=== PATIENT | female | born 1960 | race Caucasian/White ===

== ENCOUNTER 2017-05-16 17:25 | Emergency (ER) | payer MEDICARE, OTHER ==
[~2017-05-16] VITALS: Ht 154.9 cm; Wt 120.2 kg
[~2017-05-16 17:25] MED LIST: ALBU90OI INH; ALLEGRA ALLERG180 M1 PO; ALPR1 PO; ALUM320SU PO; ASPI325EC PO; ATEN25 PO; Advil200 M1 PO; BUDE6HFA INH; BUTALB-ACETAMI1 EACH PO; CEPH500 PO; Cipro500 MG PO; ESCI20 PO; FLUSAL2505 INH; FURO40 PO; GABA400 PO; Glucophage1000 MG PO; Imitrex100 MG PO; LISI5 PO; METF500 PO; Mobic15 MG PO; Multiple Vitam1 EAC1 PO; NAPR500 PO; NITR.4SL SL; OMEPRAZOLE MAGN20 MG PO; OXYACE5T PO; OXYACE7.5T PO; OXYC10TA19 PO; OXYC5 PO; PARO20 PO; PAXIL40 MG PO; POTCHL10ER PO; PREG100 PO; Pyridium200 MG PO; SULTRIDS PO; Sudogest30 MG PO; TIOT18 INH; TOPI50 PO; TRAZ50 PO; TRIHYD253B PO; Ultram50 MG PO; Valium5 MG PO; Ventolin Soln3 ML INH; Zofran Odt4 MG SL
[2017-05-16 18:43] LABS: BASOPHILS ABSOLUTE AUTO 0.09 K/mm3 (0.00-0.23); BASOPHILS PERCENT AUTO 1 % (0-2); EOSINOPHILS ABSOLUTE AUTO 0.17 K/mm3 (0.00-0.68); EOSINOPHILS PERCENT AUTO 2 % (0-6); Hematocrit 41.9 % (33.0-51.0); Hemoglobin 14.1 g/dL (11.5-16.0); IMMATURE GRAN ABSOLUTE AUTO 0.05 K/mm3 (0.00-0.10); IMMATURE GRAN PERCENT AUTO 1 % (0-1); LYMPHOCYTES ABSOLUTE AUTO 2.42 K/mm3 (0.84-5.20); LYMPHOCYTES PERCENT AUTO 29 % (21-46); MONOCYTES ABSOLUTE AUTO 0.62 K/mm3 (0.16-1.47); MONOCYTES PERCENT AUTO 7 % (4-13); Mean Corpuscular HGB 30.1 pg (26.0-34.0); Mean Corpuscular HGB Conc 33.7 g/dL (31.5-36.5); Mean Corpuscular Volume 90 fL (80-100); Mean Platelet Volume 9.2 fL (9.1-12.4); NEUTROPHILS ABSOLUTE AUTO 5.09 K/mm3 (1.96-9.15); NEUTROPHILS PERCENT AUTO 60 % (41-73); Platelet Count 316 K/mm3 (150-400); RDW Coefficient Variation 13.2 % (11.7-14.2); RDW Standard Deviation 43.5 fL (35.1-46.3); Red Blood Cell Count 4.68 M/mm3 (3.80-5.20); White Blood Cell Count 8.44 K/mm3 (4.00-11.30)
[2017-05-16 18:52] LABS: International Normalized Ratio 0.97; Prothrombin Time Results 10.1 Sec (9.7-11.5)
[2017-05-16 19:01] LABS: Alanine Aminotransfer (ALT/SGP 66 U/L (12-78); Albumin, Blood 3.9 g/dL (3.4-5.0); Alk Phos 78 U/L (50-136); Anion Gap 9 mmol/L (6-16); Aspartate Aminotrans (AST/SGOT 39 U/L (12-37); Bilirubin, Total 0.5 mg/dL (0.1-1.0); Blood Urea Nitrogen 20 mg/dL (8-24); Bun/Creatinine Ratio 22.7 (12.0-20.0); CO2, Blood 25 mmol/L (21-32); Calcium, Blood 9.5 mg/dL (8.5-10.1); Chloride, Blood 103 mmol/L (98-108); Creatinine, Blood 0.88 mg/dL (0.40-1.00); Ethanol (Alcohol), Blood, Med <3 mg/dL; Globulin, Blood 3.8 g/dL (2.2-4.0); Glomerular Filtration Rate >60 (60-); Glucose, Blood 197 mg/dL (70-99); Potassium, Blood 4.6 mmol/L (3.5-5.5); Sodium, Blood 137 mmol/L (136-145); Total Protein, Blood 7.7 g/dL (6.4-8.2)
[2017-05-16 19:46] LABS: Source, Urine Clean Catch
[2017-05-16 19:48] LABS: Bilirubin, Urine Neg (Neg); Blood, Urine Neg (Neg); Glucose Qualitative, Urine 2+ (Neg); Ketones, Urine 1+ (Neg); Leukocyte Esterase, Urine Neg (Neg); Nitrite, Urine Neg (Neg); Protein, Urine Neg (Neg); Specific Gravity, Urine 1.025 (1.003-1.022); Urobilinogen, Urine NORM (Normal)
[2017-05-16 19:54] LABS: Appearance, Urine Clear (Clear); Color, Urine Yellow (P-Yellow)
== END 2017-05-16 19:43 | disposition home or self-care (01) ==
LOC: ER 17:25
PROVIDERS: Emergency Medicine
DX: F41.0 Panic disorder [episodic paroxysmal anxiety] (principal); F32.9 Major depressive disorder, single episode, unspecified; G43.909 Migraine, unspecified, not intractable, without status migrainosus; E11.9 Type 2 diabetes mellitus without complications; J44.9 Chronic obstructive pulmonary disease, unspecified; I10 Essential (primary) hypertension; E66.9 Obesity, unspecified; F17.200 Nicotine dependence, unspecified, uncomplicated
CPT/HCPCS: 36415; 70450; 71046; 80053; 81003; 82947; 85025; 85610; 93005; 93010; 99284; G0480

== ENCOUNTER 2017-09-08 08:26 | Inpatient (IN) | payer MEDICARE, OTHER ==
[~2017-09-08] VITALS: Ht 152.4 cm; Wt 125.4 kg
[2017-09-08 09:20] LABS: PCO2 Arterial 40.8 mmHg (35-45); PO2 Arterial 76.6 mmHg (80-100); pH Blood Arterial 7.38 (7.35-7.45)
[2017-09-08 09:26] LABS: BASOPHILS ABSOLUTE AUTO 0.06 K/mm3 (0.00-0.23); BASOPHILS PERCENT AUTO 1 % (0-2); EOSINOPHILS ABSOLUTE AUTO 0.04 K/mm3 (0.00-0.68); EOSINOPHILS PERCENT AUTO 0 % (0-6); Hematocrit 41.4 % (33.0-51.0); Hemoglobin 13.8 g/dL (11.5-16.0); IMMATURE GRAN ABSOLUTE AUTO 0.06 K/mm3 (0.00-0.10); IMMATURE GRAN PERCENT AUTO 1 % (0-1); LYMPHOCYTES ABSOLUTE AUTO 1.51 K/mm3 (0.84-5.20); LYMPHOCYTES PERCENT AUTO 15 % (21-46); MONOCYTES ABSOLUTE AUTO 0.77 K/mm3 (0.16-1.47); MONOCYTES PERCENT AUTO 8 % (4-13); Mean Corpuscular HGB 30.3 pg (26.0-34.0); Mean Corpuscular HGB Conc 33.3 g/dL (31.5-36.5); Mean Corpuscular Volume 91 fL (80-100); Mean Platelet Volume 9.5 fL (9.1-12.4); NEUTROPHILS ABSOLUTE AUTO 7.88 K/mm3 (1.96-9.15); NEUTROPHILS PERCENT AUTO 76 % (41-73); Platelet Count 254 K/mm3 (150-400); RDW Coefficient Variation 13.1 % (11.7-14.2); RDW Standard Deviation 42.8 fL (35.1-46.3); Red Blood Cell Count 4.56 M/mm3 (3.80-5.20); White Blood Cell Count 10.32 K/mm3 (4.00-11.30)
[2017-09-08 09:44] LABS: Alanine Aminotransfer (ALT/SGP 51 U/L (12-78); Albumin, Blood 3.7 g/dL (3.4-5.0); Albumin/Globulin Ratio 0.9 (0.8-1.8); Alk Phos 81 U/L (50-136); Anion Gap 8 mmol/L (6-16); Aspartate Aminotrans (AST/SGOT 26 U/L (12-37); Bilirubin, Total 0.7 mg/dL (0.1-1.0); Blood Urea Nitrogen 14 mg/dL (8-24); Bun/Creatinine Ratio 15.5 (12.0-20.0); CO2, Blood 26 mmol/L (21-32); Calcium, Blood 9.1 mg/dL (8.5-10.1); Chloride, Blood 101 mmol/L (98-108); Creatinine, Blood 0.91 mg/dL (0.40-1.00); Globulin, Blood 3.9 g/dL (2.2-4.0); Glomerular Filtration Rate >60 (60-); Glucose, Blood 316 mg/dL (70-99); Potassium, Blood 4.4 mmol/L (3.5-5.5); Sodium, Blood 135 mmol/L (136-145); Total Protein, Blood 7.6 g/dL (6.4-8.2); Troponin I <0.015 ng/mL (0.000-0.040)
[2017-09-08] MEDS ORDERED: FAMO20 PO (14:50)
[2017-09-08] MEDS ORDERED: PARO20 PO (15:19)
[2017-09-09 08:02] LABS: Glucose, Blood 552 mg/dL (70-99)
[2017-09-09 10:41] LABS: Glucose, Blood 648 mg/dL (70-99)
[2017-09-11 04:20] LABS: Hematocrit 40.1 % (33.0-51.0); Hemoglobin 13.2 g/dL (11.5-16.0); Mean Corpuscular HGB 30.3 pg (26.0-34.0); Mean Corpuscular HGB Conc 32.9 g/dL (31.5-36.5); Mean Corpuscular Volume 92 fL (80-100); Mean Platelet Volume 9.7 fL (9.1-12.4); Platelet Count 270 K/mm3 (150-400); RDW Coefficient Variation 13.2 % (11.7-14.2); RDW Standard Deviation 45.2 fL (35.1-46.3); Red Blood Cell Count 4.36 M/mm3 (3.80-5.20); White Blood Cell Count 10.04 K/mm3 (4.00-11.30)
[2017-09-11 04:37] LABS: Albumin, Blood 3.5 g/dL (3.4-5.0); Anion Gap 8 mmol/L (6-16); Blood Urea Nitrogen 40 mg/dL (8-24); Bun/Creatinine Ratio 41.1 (12.0-20.0); CO2, Blood 26 mmol/L (21-32); Calcium, Blood 9.7 mg/dL (8.5-10.1); Chloride, Blood 103 mmol/L (98-108); Creatinine, Blood 0.97 mg/dL (0.40-1.00); Glomerular Filtration Rate >60 (60-); Glucose, Blood 219 mg/dL (70-99); Phosphorus, Blood 4.3 mg/dL (2.5-4.9); Potassium, Blood 4.8 mmol/L (3.5-5.5); Sodium, Blood 137 mmol/L (136-145)
[2017-09-13] MEDS ORDERED: CEPACOL SORE T1 EACH MM (09:43)
[2017-09-13] MEDS ORDERED: GUAI600T33 PO (09:44)
[2017-09-13] MEDS ORDERED: Novolog Fl100 UNIT/1 SC ×2 (09:44→09:45)
[2017-09-13] MEDS ORDERED: LEVEMIR FL100 UNIT/1 SC ×2 (09:45)
[2017-09-13] MEDS ORDERED: ALBU3IS INH (09:47)
[2017-09-13] MEDS ORDERED: PROBIOTIC1 EAC1 PO (09:47)
[2017-09-13] MEDS ORDERED: GAVILAX17 GM PO (09:48)
[2017-09-13] MEDS ORDERED: PRED20 PO (09:49)
== END 2017-09-13 12:31 | disposition home or self-care (01) | DRG 189 ==
LOC: ER 08:26 → PCU 12:08 → MEDS 14:29 → PCU 09-09 16:28 → MEDS 09-09 18:46
PROVIDERS: Internal Medicine; Physician Assistant
PROC: 5A09357 Assistance with Respiratory Ventilation, Less than 24 Consecutive Hours, Continuous Positive Airway Pressure (ICD-10-PCS; principal; 2017-09-08)
DX: J96.01 Acute respiratory failure with hypoxia (principal); J44.1 Chronic obstructive pulmonary disease with (acute) exacerbation; F11.20 Opioid dependence, uncomplicated; Z68.43 Body mass index [BMI] 50.0-59.9, adult; I10 Essential (primary) hypertension; G89.29 Other chronic pain; M79.7 Fibromyalgia; F32.9 Major depressive disorder, single episode, unspecified; E11.40 Type 2 diabetes mellitus with diabetic neuropathy, unspecified; E11.65 Type 2 diabetes mellitus with hyperglycemia; E66.9 Obesity, unspecified
CPT/HCPCS: 36415; 36600; 71046; 80053; 80069; 82803; 82947; 83036; 83880; 84484; 85025; 85027; 93005; 93010; 94640; 94660; 94667; 94668; 94761; 94762; 96365; 96375; 99285; J0456; J1650; J1815; J2920; J2930; J7050; J7120

== ENCOUNTER → 2019-01-01 | Outpatient (CLI) | payer MEDICARE ==
[~2019-01-01] MED LIST changes: +ALBU3IS INH; +CEPACOL SORE T1 EACH MM; +FAMO20 PO; +GAVILAX17 GM PO; +GUAI600T33 PO; +LEVEMIR FL100 UNIT/1 SC; +Novolog Fl100 UNIT/1 SC; +PRED20 PO; +PROBIOTIC1 EAC1 PO
== END | disposition home or self-care (01) ==
LOC: LAB 15:22 → LAB SHORT 15:22
DX: E11.9 Type 2 diabetes mellitus without complications (principal)
CPT/HCPCS: 82043

== ENCOUNTER → 2019-09-20 | Outpatient (CLI) | payer MEDICARE | LOC: LAB EV 12:35 → LAB SHORT 12:35 | DX: R05 Cough (principal); Z20.828 Contact with and (suspected) exposure to other viral communicable diseases | CPT/HCPCS: U0003 ==

== ENCOUNTER 2020-05-25 19:37 | Emergency (ER) | payer OTHER ==
[~2020-05-25] VITALS: Ht 152.4 cm; Wt 108.9 kg
[2020-05-25] MEDS ORDERED: Prozac40 MG PO (20:01)
[2020-05-25 20:48] LABS: BASOPHILS ABSOLUTE AUTO 0.06 K/mm3 (0.00-0.23); BASOPHILS PERCENT AUTO 1 % (0-2); EOSINOPHILS ABSOLUTE AUTO 0.42 K/mm3 (0.00-0.68); EOSINOPHILS PERCENT AUTO 5 % (0-6); Hematocrit 33.1 % (33.0-51.0); Hemoglobin 10.6 g/dL (11.5-16.0); IMMATURE GRAN ABSOLUTE AUTO 0.04 K/mm3 (0.00-0.10); IMMATURE GRAN PERCENT AUTO 1 % (0-1); LYMPHOCYTES ABSOLUTE AUTO 2.26 K/mm3 (0.84-5.20); LYMPHOCYTES PERCENT AUTO 26 % (21-46); MONOCYTES ABSOLUTE AUTO 0.69 K/mm3 (0.16-1.47); MONOCYTES PERCENT AUTO 8 % (4-13); Mean Corpuscular HGB 29.8 pg (26.0-34.0); Mean Corpuscular Volume 93 fL (80-100); Mean Platelet Volume 9.5 fL (9.1-12.4); NEUTROPHILS ABSOLUTE AUTO 5.22 K/mm3 (1.96-9.15); NEUTROPHILS PERCENT AUTO 60 % (41-73); Platelet Count 278 K/mm3 (150-400); RDW Coefficient Variation 14.8 % (11.7-14.2); RDW Standard Deviation 51.2 fL (35.1-46.3); Red Blood Cell Count 3.56 M/mm3 (3.80-5.20); White Blood Cell Count 8.69 K/mm3 (4.00-11.30)
[2020-05-25 20:55] LABS: Alanine Aminotransfer (ALT/SGP 26 U/L (12-78); Albumin, Blood 3.7 g/dL (3.4-5.0); Albumin/Globulin Ratio 1.1 (0.8-1.8); Alk Phos 70 U/L (50-136); Anion Gap 5 mmol/L (6-16); Aspartate Aminotrans (AST/SGOT 10 U/L (12-37); Bilirubin, Total 0.6 mg/dL (0.1-1.0); Blood Urea Nitrogen 29 mg/dL (8-24); Bun/Creatinine Ratio 28.7 (12.0-20.0); CO2, Blood 28 mmol/L (21-32); Chloride, Blood 110 mmol/L (98-108); Creatinine, Blood 1.01 mg/dL (0.40-1.00); Globulin, Blood 3.3 g/dL (2.2-4.0); Glomerular Filtration Rate 59 (60-); Glucose, Blood 92 mg/dL (70-99); Potassium, Blood 4.3 mmol/L (3.5-5.5); Sodium, Blood 143 mmol/L (136-145)
[2020-05-25 22:28] LABS: Troponin I <0.015 ng/mL (0.000-0.040)
== END 2020-05-25 22:54 | disposition home or self-care (01) ==
LOC: ER 19:37
PROVIDERS: Emergency Medicine
DX: R07.9 Chest pain, unspecified (principal); J44.9 Chronic obstructive pulmonary disease, unspecified; Z79.4 Long term (current) use of insulin; Z79.899 Other long term (current) drug therapy; Z79.52 Long term (current) use of systemic steroids; Z79.51 Long term (current) use of inhaled steroids; Z88.5 Allergy status to narcotic agent; Z88.2 Allergy status to sulfonamides; Z88.1 Allergy status to other antibiotic agents; Z88.6 Allergy status to analgesic agent; Z88.8 Allergy status to other drugs, medicaments and biological substances; Z87.891 Personal history of nicotine dependence
CPT/HCPCS: 71045; 80053; 84484; 85025; 93005; 93010; 99285-25

== ENCOUNTER 2022-02-22 14:48 | Inpatient (IN) | payer OTHER ==
[~2022-02-22] VITALS: Ht 172.7 cm; Wt 119.5 kg
[~2022-02-22 14:48] MED LIST changes: +ACET325 PO; +ATORVASTATIN CA80 M1 PO; +HYDHCL25 PO; +PROBIOTIC1 EA13 PO; -PROBIOTIC1 EAC1 PO; +Prozac40 MG PO
[2022-02-22 15:18] LABS: PCO2 Arterial 48.3 mmHg (35-45); PO2 Arterial 72.3 mmHg (80-100); pH Blood Arterial 7.35 (7.35-7.45)
[2022-02-22 15:24] LABS: BASOPHILS ABSOLUTE AUTO 0.06 K/mm3 (0.00-0.23); BASOPHILS PERCENT AUTO 0 % (0-2); EOSINOPHILS ABSOLUTE AUTO 0.02 K/mm3 (0.00-0.68); EOSINOPHILS PERCENT AUTO 0 % (0-6); Hematocrit 43.1 % (33.0-51.0); IMMATURE GRAN ABSOLUTE AUTO 0.07 K/mm3 (0.00-0.10); IMMATURE GRAN PERCENT AUTO 1 % (0-1); LYMPHOCYTES ABSOLUTE AUTO 1.09 K/mm3 (0.84-5.20); LYMPHOCYTES PERCENT AUTO 8 % (21-46); MONOCYTES ABSOLUTE AUTO 0.94 K/mm3 (0.16-1.47); MONOCYTES PERCENT AUTO 7 % (4-13); Mean Corpuscular HGB 28.6 pg (26.0-34.0); Mean Corpuscular HGB Conc 32.5 g/dL (31.5-36.5); Mean Corpuscular Volume 88 fL (80-100); Mean Platelet Volume 8.9 fL (9.1-12.4); NEUTROPHILS ABSOLUTE AUTO 11.96 K/mm3 (1.96-9.15); NEUTROPHILS PERCENT AUTO 85 % (41-73); Platelet Count 307 K/mm3 (150-400); RDW Coefficient Variation 14.5 % (11.7-14.2); RDW Standard Deviation 46.8 fL (35.1-46.3); Red Blood Cell Count 4.89 M/mm3 (3.80-5.20); White Blood Cell Count 14.14 K/mm3 (4.00-11.30)
[2022-02-22 15:40] LABS: Albumin, Blood 3.8 g/dL (3.4-5.0); Albumin/Globulin Ratio 0.9 (0.8-1.8); Bilirubin, Total 0.9 mg/dL (0.1-1.0); Bun/Creatinine Ratio 14.7 (12.0-20.0); Calcium, Blood 9.1 mg/dL (8.5-10.1); Creatinine, Blood 0.95 mg/dL (0.40-1.00); Globulin, Blood 4.1 g/dL (2.2-4.0); Potassium, Blood 4.2 mmol/L (3.5-5.5); Total Protein, Blood 7.9 g/dL (6.4-8.2)
[2022-02-22 16:04] LABS: Source, Urine Foley catheter
[2022-02-22 16:06] LABS: Appearance, Urine Clear (Clear); Bilirubin, Urine Neg (Neg); Blood, Urine Neg (Neg); Color, Urine Yellow (P-Yellow); Glucose Qualitative, Urine Neg (Neg); Ketones, Urine Neg (Neg); Leukocyte Esterase, Urine Neg (Neg); Nitrite, Urine Neg (Neg); Protein, Urine 2+ (Neg); Specific Gravity, Urine 1.025 (1.003-1.022); Urobilinogen, Urine NORM (Normal)
[2022-02-22 16:29] LABS: Amorphous Light (0-Heavy); Bacteria Few /hpf; Mucus Mod (0-Heavy); Red Blood Cells, Urine 0-2 /hpf (0-2); Squamous Epithelial Cells Rare /hpf (Few); Transitional Epithelial Cells Rare /hpf (0-Rare); White Blood Cells, Urine 0-2 /hpf (0-5)
[2022-02-22 16:30] LABS: Granular Casts 0-2 /lpf (0); Hyaline Casts 0-2 /lpf (0-2); Renal Epithelial Rare /hpf (0-Rare)
[2022-02-22 16:46] LABS: Influenza A, PCR NEGATIVE (NEGATIVE); Influenza B, PCR NEGATIVE (NEGATIVE); SARS-Cov-2 (COVID-19) PCR, MMC NEGATIVE (NEGATIVE)
[2022-02-22] MEDS ORDERED: FUROSEMIDE40 MG PO (17:44)
[2022-02-22 18:37] LABS: Resp Syncytial Virus, PCR POSITIVE (NEGATIVE)
--- NOTE | 2022-02-22 21:05 | NUR ---
PT HERE VIA [facility] FROM ER. PT TRANSFERRED TO PCU BED. PT IS ALERT AND ORIENTED, AND ABLE TO COMPLETE SENTENCES. PT IS ON BIPAP SETTING 03/30/% - SATS WNL. RR 38. PT PLACED IN PCU GOWN. ORIENTED TO CALL LIGHT, SURROUNDINGS. PT IS UPSET SHE IS NPO. TOOTHETTES PROVIDED FOR COMFORT. PT REPORTS SHE WEARS 3L OXYGEN VIA NC AT BEDTIME. PT IS MORBIDLY OBESE. PT HAS A HISTORY OF PANIC/ANXIETY ATTACKS. PT CURRENTLY IS TOLERATING THE BIPAP WITHOUT COMPLICATIONS. IV SL'D TO LEFT AC - FLUSHED. LS WITH I/E WHEEZE UPPER RIGHT LOBE, OTHERWISE LS CLEAR, BUT DIM THROUGHOUT. PT IS COUGHING UP GREEN, BROWN PHLEGM. PT REPORTS RECENTLY, 2 WEEKS AGO, STARTED SMOKING AGAIN, SEE ADMIT HISTORY. JONES IN PLACE. CALL LIGHT WITHIN REACH. BED IN LOW POSITION. BED ALARM ON FOR PT SAFETY.
[2022-02-22] MEDS ORDERED: ABILIFY MYCITE2 M2 PO (21:31)
[2022-02-22] MEDS ORDERED: TOUJEO MAX300 UNIT/2 SC (21:34)
[2022-02-22] MEDS ORDERED: OZEMPIC1 MG/0.72 SC (21:36)
[2022-02-22] MEDS ORDERED: Prozac20 MG PO (21:38)
[2022-02-22] MEDS ORDERED: PRAZ2 PO (21:39)
--- NOTE | 2022-02-22 22:50 | NUR ---
PT REPORTS ANXIETY LEVEL IS INCREASING. SPOKE TO LIAM CN - RELAYED ATARAX ON HER PROFILE. LIAM RECOMMENDED POSSIBLY ATIVAN FOR ANXIETY. I CALLED DR. FRAGA, RELAYED ANXIETY LEVEL, AND CURRENT BIPAP SETTINGS, FI02 30%, RECEIVED ORDER ATIVAN 0.5MG ORDER PO X1.
--- NOTE | 2022-02-22 23:15 | NUR ---
JIM CARVALHO REPORTED TO ME, PT IS REPORTING THE BIPAP IS PUSHING TOO MUCH AIR. I CONTACTED RESPIRATORY, RODNEY Valdez, AND UPDATED HIM - HE RELAYED SHE WAS ON THE LOWEST SETTINGS, BUT WOULD BE BY SHORTLY TO SEE HER.
--- NOTE | 2022-02-22 23:27 | NUR ---
PT SITTING UP IN BED, JUST PULLED HER BIPAP MASK OFF, RELAYED SHE ISN'T TOLERATING IT. PT REFUSED TO HAVE HER BIPAP PLACED ON, SATS WERE CONTINUING TO DROP. YANCI WHEELER CAME TO ROOM, SATS HAD DROPPED TO 70%. PT SAID SHE "COULDN'T GET HER AIR." RESPIRATORY CALLED, PT'S SATS CONTINUED TO DROP. PLACED PT BACK ON BIPAP, 100% FIO2, SATS DROPPED DOWN TO 32% PER MONITOR. 2328 RODNEY, RT IN ROOM. PT PLACED BACK INTO BED WITH BIPAP IN PLACE. PT WAS BEGINNING TO LOOSE CONSCIOUSNESS, EYES ROLLING TO THE BACK OF HER HEAD, WITH A GLAZED LOOK ON HER FACE. 2330 RAPID RESPOND CALLED - [phone], REPORT FROM PULLMAN CAR CLERK IS THE RAPID HAD BEEN "CALLED 3X", HOWEVER WE DIDN'T HEAR THE RAPID OVERHEAD UNTIL 2331. AT 2332 SATS REBOUNDED TO 98%, FIO2 WAS TURNED DOWN TO 40%. SEE VS. [address] FRAGA, SHE DIDN'T RESPOND TO THE RAPID. AT 2339 DR. FRAGA HERE, SHE RELAYED SHE DIDN'T HEAR THE RAPID CALLED. RELAYED INFORMATION ABOVE TO DR. FRAGA. ORDERED STAT ABG AND TRANSFER TO ICU. 2343 PT TRANSFERRED TO ICU ROOM 2, REPORT GIVEN TO SU RIGGS.
[2022-02-23 00:43] LABS: pH Blood Arterial 7.37 (7.35-7.45)
[2022-02-23 00:44] LABS: PCO2 Arterial 42.5 mmHg (35-45); PO2 Arterial 82.1 mmHg (80-100)
--- NOTE | 2022-02-23 01:04 | NUR ---
Assumed care. Pt arrived in ICU at approximately 2350. According to SOCIAL SCIENCE INSTRUCTOR, pt became very anxious, leading to her taking her BIPAP mask off and desaturating into the 40s. Rapid response called, pt put back on BIPAP and brought to ICU for light sedation to help with anxiety. Pt A&O upon arrival, denies SOB, pain, numbness/tingling upon arrival. Vital signs stable. Precedex started at 0.2 mcg/kg/hr and titrated up to 0.3 mcg/kg/hr for comfort. Pt resting comfortably at this time, will continue to monitor.
[2022-02-23 04:58] LABS: BASOPHILS ABSOLUTE AUTO 0.03 K/mm3 (0.00-0.23); BASOPHILS PERCENT AUTO 0 % (0-2); EOSINOPHILS PERCENT AUTO 0 % (0-6); Hematocrit 36.7 % (33.0-51.0); Hemoglobin 12.2 g/dL (11.5-16.0); IMMATURE GRAN ABSOLUTE AUTO 0.08 K/mm3 (0.00-0.10); IMMATURE GRAN PERCENT AUTO 1 % (0-1); LYMPHOCYTES ABSOLUTE AUTO 0.37 K/mm3 (0.84-5.20); LYMPHOCYTES PERCENT AUTO 2 % (21-46); MONOCYTES ABSOLUTE AUTO 0.44 K/mm3 (0.16-1.47); MONOCYTES PERCENT AUTO 3 % (4-13); Mean Corpuscular HGB 29.1 pg (26.0-34.0); Mean Corpuscular HGB Conc 33.2 g/dL (31.5-36.5); Mean Corpuscular Volume 88 fL (80-100); Mean Platelet Volume 9.3 fL (9.1-12.4); NEUTROPHILS ABSOLUTE AUTO 15.86 K/mm3 (1.96-9.15); NEUTROPHILS PERCENT AUTO 95 % (41-73); Platelet Count 271 K/mm3 (150-400); RDW Coefficient Variation 14.4 % (11.7-14.2); RDW Standard Deviation 46.8 fL (35.1-46.3); Red Blood Cell Count 4.19 M/mm3 (3.80-5.20); White Blood Cell Count 16.78 K/mm3 (4.00-11.30)
[2022-02-23 05:21] LABS: Bun/Creatinine Ratio 23.5 (12.0-20.0); Calcium, Blood 8.9 mg/dL (8.5-10.1); Creatinine, Blood 0.94 mg/dL (0.40-1.00); Potassium, Blood 4.2 mmol/L (3.5-5.5)
--- NOTE | 2022-02-23 06:13 | NUR ---
Shift summary. Pt rested in bed througout shift. Admit assessment reviewed, reassessements unchanged. Precedex titrated up to 0.7 mcg/kg/hr for anxiety. Current BIPAP settings 16/, 30%. Vital signs stable. No acute events during shift, will continue to monitor and report off to dayshift RN.
--- NOTE | 2022-02-23 07:24 | NUR ---
ASSUMED CARE PT IS ALERT AND ORIENTED X4. BIPAP 30% ON W/ SPO2 >92%. MAP >65. LUNG SOUNDS ARE CLEAR/DIMINISHED. PT RR IS ELEVATED. PT HAS MILD ANXIETY AT TIME OF NOTE AND REFUSED RUBY BLUE FROM PUTTING A PROPER SEAL W/ BIPAP.
--- NOTE | 2022-02-23 08:38 | NUR ---
UPDATE PRECEDEX AT 1.1 AND 0.5MG OF ATIVAN GIVEN, RR STILL IN THE 30'S-40'S. PULMONARY CONSULT ORDERED AND DR. HERNANDEZ NOTIFIED.
--- NOTE | 2022-02-23 09:43 | NUR ---
UPDATE PT MOVED TO HIGH FLOW NC ON 6L. SPO2 >92%. PT STILL ANXIOUS, SOB, AND EXPIRATORY WHEEZING. RR IN THE 30'S.
--- NOTE | 2022-02-23 14:18 | NUR ---
UPDATE PT INTUBATED BP: 237/106; HR:118; RR: 35. 5ML'S PROPOFOL GIVEN AT 1201, ET TUBE IN AT 1202; 8.0, 25 @ LIPS. BP: 212/122; HR: 106. 5MLS PROPOFOL @ 1204. 2MG OF ATIVAN GIVEN AT 1206. O2 72% AND BAGGING/HR 100/ BP 137/85 AT 1207. 5 MLS OF PROPOFOL AT 1208. 1209 O2 59% AND BAGGING. 1210 72%. 1212 SPO2 >92%. 16/375/10/100%. VENT SETTINGS SAME EXCEPT FOR FIO2 TITRATED DOWN TO 50% AT TIME OF THIS NOTE. PRECIPITATING THE INTUBATION: PT SAT UP AND HAD A PANIC ATTACK/TORE OFF HER OXYGEN AND DESATTED DOWN INTO THE 30'S; PRESSURES ON BIPAP WERE TURNED UP AND PT RETURNED TO >92%, BUT STILL HAD HIGH RR. AND KIND OF WENT BLANK PER NACHO RN. AFTER DISCUSSING W/ RT, RUBY GRIFFITH, AND DR. HERNANDEZ, VENTILATION WAS DECIDED BEST COURSE OF ACTION FOR PATIENT.
--- NOTE | 2022-02-23 17:38 | NUR ---
SHIFT SUMMARY PT INTUBATED AT 16/375/10/35% SPO2 >92%. MAP >65 W/ SBP IN THE 130-140'S. PROPOFOL AT 40MCG; LR TO BE RAN AT 100MLS/HR ONCE SALINE BAG IS FINISHED. PT WAS INITIALLY ON BIPAP AND HIGH FLOW NC THIS MORNING, BUT HAD AN EPISODE OF RESPIRATORY FAILURE ON HIGH FLOW NC AFTER HAVING A PANIC ATTACK AND REMOVING OXYGEN AND SATTED DOWN INTO THE 30'S PER CHARGE NURSE NACHO. PT WAS PUT BACK ONTO BIPAP AND HAD PRESSURES INCREASED, WHICH BROUGHT SPO2 BACK ABOVE 92%. AFTER DISCUSSING WITH NACHO RN, RUBY RN, ATTILA RT, AND DR HERNANDEZ, DECISION TO INTUBATE WAS MADE. PT IS TOLERATING VENTILATOR W/ CURRENT SEDATION. URINE IS MARICRUZ/SEDIMENT-Y AND URINE SAMPLE HAS BEEN SENT TO LAB PER ORDER.
[2022-02-23 17:40] LABS: Source, Urine Foley catheter
[2022-02-23 17:48] LABS: Appearance, Urine Cloudy (Clear); Bilirubin, Urine Neg (Neg); Blood, Urine 5+ (Neg); Color, Urine Amber (P-Yellow); Glucose Qualitative, Urine 2+ (Neg); Ketones, Urine 1+ (Neg); Leukocyte Esterase, Urine 1+ (Neg); Nitrite, Urine Neg (Neg); Protein, Urine 2+ (Neg); Urobilinogen, Urine NORM (Normal)
[2022-02-23 17:55] LABS: Red Blood Cells, Urine 50-100 /hpf (0-2)
[2022-02-23 17:56] LABS: Amorphous Mod (0-Heavy); Bacteria Many /hpf; Squamous Epithelial Cells Rare /hpf (Few); Transitional Epithelial Cells Rare /hpf (0-Rare)
[2022-02-23 17:57] LABS: Renal Epithelial Rare /hpf (0-Rare)
[2022-02-24 04:03] LABS: Hematocrit 35.3 % (33.0-51.0); Hemoglobin 11.5 g/dL (11.5-16.0); Mean Corpuscular HGB 28.8 pg (26.0-34.0); Mean Corpuscular HGB Conc 32.6 g/dL (31.5-36.5); Mean Corpuscular Volume 89 fL (80-100); Mean Platelet Volume 9.4 fL (9.1-12.4); Platelet Count 272 K/mm3 (150-400); RDW Coefficient Variation 14.7 % (11.7-14.2); RDW Standard Deviation 47.9 fL (35.1-46.3); Red Blood Cell Count 3.99 M/mm3 (3.80-5.20); White Blood Cell Count 16.07 K/mm3 (4.00-11.30)
[2022-02-24 04:29] LABS: Albumin, Blood 2.7 g/dL (3.4-5.0); Albumin/Globulin Ratio 0.7 (0.8-1.8); Bilirubin, Total 0.7 mg/dL (0.1-1.0); Bun/Creatinine Ratio 27.5 (12.0-20.0); Calcium, Blood 8.9 mg/dL (8.5-10.1); Creatinine, Blood 1.09 mg/dL (0.40-1.00); Globulin, Blood 3.9 g/dL (2.2-4.0); Magnesium, Blood 2.2 mg/dL (1.6-2.4); Potassium, Blood 4.1 mmol/L (3.5-5.5); Total Protein, Blood 6.6 g/dL (6.4-8.2)
--- NOTE | 2022-02-24 06:11 | NUR ---
SHIFT SUMMARY: GENERAL: THIS AUTHOR ASSUMED PATIENT CARE FROM . PATIENT REMAINS INTUBATED AND SEDATED OVERNIGHT. NEURO: ATTEMPTS TO OPEN EYES, FOLLOW VOICE COMMANDS. AFEBRILE. SEDATION TITRATED TO SYNC WITH VENTILATOR AND FOR PATIENT COMFORT. CARDS: SR/ST, BP WDL. NO OBVIOUS EDEMA NOTED. RESP: EXPIRATORY WHEEZING, L>R. DIMINISHED IN BASES. VENT SETTINGS AC/VC, PEEP 10, FIO2 CURRENTLY 35%. MINIMAL SECRETION BURDEN PO AND INLINE. SHE IS COUGHING AND OCCASIONALLY FIGHTS THE VENTILATOR. SHE HAS BEEN TACHYPNEIC WITH RATES IN THE LOW- TO MID-30S. APPEARS TO BE BELLY BREATHING. MSK/INTEG: GENERALIZED WEAKNESS. SKIN LOOKS GREAT. Q2HR TURNS DONE. BATH DONE. GI/: LOW UOP OVERNIGHT; NO BM THIS SHIFT. ENDO: Q6H CHECKS DONE. 4 UNITS GIVEN X2.
--- NOTE | 2022-02-24 07:50 | NUR ---
ASSUMED CARE PT IS INTUBATED AT 16/375/10/35% W/ SPO2 >92%. MAP >65. PT'S LUNG SOUNDS ARE WORSE THAN YESTERDAY W/ COARSE SOUNDS BILATERALLY AND WHEEZES IN BOTH UPPER LOBES. URINE IS ORANGE W/ SEDIMENT. PROPOFOL AT 50MCG, FENTANYL AT 25MCG/HR, AND LR AT 100MLS/HR. TEMPERATURE SEEMS TO BE TRENDING UPWARDS.
--- NOTE | 2022-02-24 11:42 | NUR ---
UPDATE PT MOVED TO FENTANYL DRIP TO MAKE TITRATION EASIER.
--- NOTE | 2022-02-24 12:27 | NUR ---
UPDATE TUBE FEED STARTED AT 10MLS/HR OF VHP W/ 30ML FLUSH Q4H.
--- NOTE | 2022-02-24 13:24 | NUR ---
Spiritual Care Request. Pt. is intubated and non responsive. No family are present. Prayed over Pt. and will remain available to Pt., family, and staff.
--- NOTE | 2022-02-24 15:14 | NUR ---
UPDATE PT NOT TOLERATING VENTILATOR AND STACKING BREATHS W/ INADEQUATE EXHALATIONS AND SHORT INHALATIONS. OBSERVED WORSE LUNG SOUNDS AND EXPIRATORY WHEEZES, RT NOTIFIED AND PEEP INCREASED TO 12. DR HERBERT CONSULTED AND DECISION TO TRIAL 10MG OF ROCURONIUM D/T HIGH LEVELS OF SEDATION. BIZ MONITOR APPLIED AND JALYN WAS TRIALED W/ SUCCESS. PT STARTED FIGHTING VENTILATOR AFTER JALYN WORE OFF AND NIMBEX DRIP WAS STARTED PER DR HERBERT.
--- NOTE | 2022-02-24 16:33 | NUR ---
PT UPDATE... APROX 1430 THE PT STARTED TO STACK HER BREATHS AND BECOME DYSSYNCHRONOUS WITH THE VENT. RT WAS CALLED AT THIS TIME. THE PT'S PROPOFOL WAS AT 60MCG, FENTANYL GTT WAS AT 100MCG/HR. VERSED GTT WAS STARTED AT THIS TIME. THE PT CONTINUED TO STACK HER BREATHS AND HER O2 SATS DROPPED DOWN TO 88% . DR. HERBERT WAS NOTIFIED AND THE PT WAS GIVEN A 1 TIME IV PUSH OF JALYN. NEW ORDERS WERE ALSO GIVEN FOR INCREASED BREATING TREATMENTS. AFTER THE JALYN WAS GIVEN THE PT TOLERATED THE VENT WELL. NIMBEX DRIP WAS ORDERED AND STARTED AT 2MCG/KG. TOF WAS 4/4 AT A LEVEL OF 10 TO THE RIGHT EYEBROW. BIS MONITOR WAS APPLIED AND THE PT HAD A BIS OF 38-44. THE PT'S VENT SETTINGS WERE ALSO CHANGED, THE PEEP WAS INCREASED FROM 10 TO 12. NEW VENT SETTINGS ARE AC/VC: 16/375/12/40% WILL CONTINUE TO MONITOR.
--- NOTE | 2022-02-24 18:02 | NUR ---
SHIFT SUMMARY PT IS INTUBATED W/ SETTINGS AT 16/375/12/40% W/ SPO2 >92%. MAP >65. PT HAS 2MCG/KG/MIN OF NIMBEX, 60MCG/KG/MIN PROPOFOL, 2MG/HR VERSED, 100MCG/HR OF FENTANYL, AND 100ML/HR OF LR RUNNING. PT WAS VENTILATOR COMPLIANT FOR FIRST HALF OF DAY, BUT BEGAN TO SHOW ACCESSORY MUSCLE USAGE WHEN BREATHING. PT WAS EASILY AROUSABLE AND WOULD CONSTANTLY PULL AT RESTRAINTS, ESPECIALLY W/ TURNS. AROUND 1300 PT STARTED ALARMING ON THE VENTILATOR, BREATHSTACKING, HEAVY ACCESSORY MUSCLE USAGE, LONG EXPIRATORY WHEEZE, AND HAD SHORT COARSE INHALATIONS. RT WAS NOTIFIED AND PEEP WAS TITRATED UP TO 12 AND TWO BREATHING TREATMENTS WERE ADMINISTERED. DR HERBERT WAS CONSULTED AND WE TRIALED PARALYTICS WHICH WORKED WELL. AFTER THE ROCURONIUM WORE OUT, THE PT BEGAN TO RETURN TO THE PREVIOUS STATE AND IT WAS DECIDED THAT NIMBEX WAS APPROPRIATE (RUBY BLUE AND DR HERBERT DISCUSSED THIS). PT IS NOT ADEQUATELY SEDATED W/ BIZ MONITORING AND TOLERATING VENTILATOR.
--- NOTE | 2022-02-24 21:20 | NUR ---
PT S/O, TYLOR HERE AT SHIFT CHANGE AND LEFT AFTER VISITING HOURS WERE OVER. STATED HE WILL BE RETURNING IN THE MORNING. PT'S DAUGHTER, NATHALIA, CALLED [facility] FOR AN UPDATED AND ALL QUESTIONS WERE ANSWERED AT THIS TIME. NATHALIA STATED THAT " MY MOTHER'S BOYFRIEND IS NOT THE DECISION MAKER AND WILL NOT BE ALLOWED TO MAKE DECISIONS ON BEHALF OF MY MOTHER". I ASSURED NATHALIA THAT I WOULD PASS ALONG THIS MESSAGE.
--- NOTE | 2022-02-24 21:30 | NUR ---
ASSUMPTION OF CARE/ASSESSMENT: ASSUMED CARE OF PT AT 1900, BEDSIDE REPORT RECIEVED FROM JANEE BLUE. PT IS CURRENTLY INTUBATED, SEDATED AND PARALYZED. VENT SETTINGS ARE 16/375/12/40%. PROPOFOL GTT 50 MCG, VERSED GTT 2 MG, NIMBEX GTT 2MCG, AND FENTANYL GTT 100 MCG. PT IS UNRESPONSIVE; BIS RANGING 40-44 AND TOF 2/4. LUNG SOUNDS ARE CLEAR WITH A EXPIRATORY WHEEZE IN ALL LOBES, DIM BASES. PT RR 16 AND SPO2 94<. PT IS COMPLIANT WITH VENT; NO COUGH OR GAG REFLEX PRESENT. PT HR IN THE 80-90'S AND SBP 130-140'S; CONTINUOUS LIVESTOCK EXHIBITOR IN PLACE. PT HAS OBESE, ROUND AND SLIGHTLY FIRM ABD; HYPOACTIVE BS IN THREE QUADRANTS, ABSENT BS IN THE RLQ. PT HAS AN OGT THAT IS INFUSING TUBE FEEDS AT 10 MLS/HR. JONES IN PLACE THAT IS DRAINING TO GRAVITY; URINE IS DARK YELLOW, CLOUDY, AND RED SEDIMENTS NOTED. PT SKIN PALE; EXTREMITIES COOL AND HANDS ARE WARM, CAP REFIL MAINTAINING < 3 SECONDS, AND PPP X 4. WILL CONTINUE TO MONITOR.
[2022-02-25 05:36] LABS: Magnesium, Blood 2.5 mg/dL (1.6-2.4)
[2022-02-25 05:37] LABS: Albumin, Blood 2.3 g/dL (3.4-5.0); Anion Gap 8 mmol/L (6-16); Blood Urea Nitrogen 28 mg/dL (8-24); Bun/Creatinine Ratio 33.3 (12.0-20.0); CO2, Blood 26 mmol/L (21-32); Calcium, Blood 8.9 mg/dL (8.5-10.1); Chloride, Blood 104 mmol/L (98-108); Creatinine, Blood 0.84 mg/dL (0.40-1.00); Glomerular Filtration Rate 79 (60-); Glucose, Blood 282 mg/dL (70-99); Phosphorus, Blood 3.1 mg/dL (2.5-4.9); Sodium, Blood 138 mmol/L (136-145)
--- NOTE | 2022-02-25 06:31 | NUR ---
SHIFT SUMMARY: NO ACUTE CHANGES THIS SHIFT. PT REMAINS INTUBATED, SEDATED, AND PARALYZED. VENT SETTINGS AC/VC 16/375/12/40%, RR-16, SPO2 94<, AND COMPLIANT WITH VENT ALL SHIFT. PROPOFOL GTT 40 MCG, VERSED 2 MCG, NIMBEX 1 MCG, AND FENTANYL COLLECTIONS PROFESSIONAL 100 MCG. TOF REASSESSED AFTER TITRATING NIMBEX DOWN AT 0400 ASSESSMENT AND IS NOW 4/4. PT GOT A COMPLETE BED BATH AND LINEN CHANGE THIS SHIFT. PT HAD GOOD URINE OUTPUT THIS SHIFT. TUBE FEEDINGS REMAIN AT 10 MLS/HR; HYPOACTIVE SOUNDS NOW HEARD IN ALL FOUR QUADRANTS; NO BOWEL MOVEMENT THIS SHIFT. WILL CONTINUE TO MONITOR UNTIL ONCOMING RN ARRIVES.
--- NOTE | 2022-02-25 12:40 | NUR ---
REASSESSMENT PT REMAINS INTUBATED AND SEDATED. VERSED TITRATED OFF THIS MORNING BIS WAS IN THE 30S AND STAYED THAT WAY WITHOUT THE VERSED. ONCE DR. HERBERT WAS ON THE UNIT NIMBEX TURNED OFF. SINCE THEN PT HAS BEEN BREATHING WELL WITH THE VENT. SHE STILL STACKS SOME BREATHS, BUT HER PEAK PRESSURES HAVE BEEN OK. CONTINUES WITH PROPOFOL AND FENTANYL FOR SEDATION. LUNGS REMAIN CLEAR, BUT QUITE DIM. SR, BP STABLE. TOLERATING TUBE FEED. RECTAL SWAB OBTAINED PER INFECTION CONTROL TO CLEAR PT FROM ESBL PRECAUTIONS EVENTUALLY. CONTINUING TO MONITOR.
--- NOTE | 2022-02-25 14:13 | NUR ---
Pt. is intubated and non-responsive. Prayed for Pt. Will continue to be available tp Pt. a/o family.
--- NOTE | 2022-02-25 15:15 | NUR ---
AFTER TURNING PT SHE STARTED TO HIGH PEAK PRESSURE ON THE VENTILATOR AGAIN. SUCTIONED PT WITH NO SUCCESS. PT PULLING MINIMAL VOLUMES. ARIK KUMAR NOTIFIED AND NIMBEX RESTARTED ONCE HE WAS AT THE BEDSIDE. PT CONTINUED TO VENTILATE POORLY UNTIL THE NIMBEX KICKED IN. BIS STILL READING IN THE 40S WITH ONLY PROPOFOL AND FENTANYL FOR SEDATION. RESTRAINS DC'D SINCE PT PARALYZED AGAIN. DR. HERBERT NOTIFIED.
--- NOTE | 2022-02-25 17:28 | NUR ---
SHIFT SUMMARY PT REMAINS INTUBATED AND SEDATED THIS SHIFT. NIMBEX WAS TITRATED OFF THIS MORNING, THEN RESTARTED THIS AFTERNOON WHEN PT WAS NOT TOLERATING THE VENTILATOR, AND NOW HAS BEEN TITRATED OFF AGAIN NOW THAT KETAMINE IS INFUSING TO SEE HOW PT TOLERATES THE VENTILATOR WITH KETAMINE ON BOARD TO SEE IF PARALYTICS CAN BE MINIMIZED. VERSED WAS TITRATED OFF THIS MORNING WELL, BUT RESTARTED THIS AFTERNOON AT DR. HERBERT'S REQUEST BECAUSE PT TAKES XNAX CHRONICALLY. FENTANYL TITRATED DOWN FIRST PER DR. HERBERT. CURRENTLY AT 25MCG/HR AND BIS IS 46. PT'S LUNGS ARE CLEAR, BUT DIMINISHED. SR, BP STABLE. TOLERATING TUBE FEED AT INCREASED RATE OF 15ML/HR. BLOOD SUGARS ARE RUNNING HIGH. DISCUSSED WITH DR. POSADAS WHO INCREASED THE SS TO HIGH.
--- NOTE | 2022-02-25 17:52 | NUR ---
PT'S RINGS GIVEN TO DAUGHTER NATHALIA TO TAKE HOME.
--- NOTE | 2022-02-25 21:26 | NUR ---
ASSUMPTION OF CARE/ASSESSMENT: ASSUMED CARE OF PT AT 1900. PT IS INTUBATED AND SEDATED AT THIS TIME. VENT SETTINGS 16/375/10/40%. PROPOFOL GTT 50 MCG, VERSED 1 MG, KETAMINE 60 MLS, AND FENTANYL LIFE ENRICHMENT SPECIALIST 25 MCG. PT IS RESPONSIVE TO PAIN BUT NO EXTREMITIES MOVEMENT PRESENT. PT NOT OPENING EYES TO PAIN STIMULI JUST GRIMANCING. PT LUNG SOUNDS ARE COARSE IN THE RIGHT SIDE, CLEAR IN THE LEFT AND DIM BASES. PT RR 18-20, SPO2 92<. HR IN THE 90'S, SBP 130-140'S, MAP 65<, CONTINUOUS HEALTH SCIENCES DEPARTMENT CHAIR IN PLACE. PT HAS AN OGT IN PLACE AND INFUSING TUBE FEEDS AT 15 MLS/HR AND FLUSHES EASILY. HYPOACTIVE BS IN ALL FOUR QUADRANTS; ABD OBESE, SLIGHTLY FIRM IN UPPER QUADRANTS. JONES IN PLACE AND DRAINING TO GRAVITY; CLOUDY, YELLOW URINE. PPP X 4, EXTREMITIES WARM AND CAP REFIL < 3 SECONDS. DURING TURNS PT HAD A COUGHING FIT AND MODERATE AMOUNTS OF THICK, WHITE SECRETIONS FROM ETT. PT RECOVERED AND IS TOLERATING TURN TO RIGHT SIDE. PLANS TO WEAN FENTANYL LIFE ENRICHMENT SPECIALIST THIS SHIFT; ORDERS RECIEVED FROM DR HERBERT FOR 50-75 MCG Q3 PRN FOR PAIN ONCE WE TITRATE. WILL CONTINUE TO MONITOR.
[2022-02-26 04:18] LABS: BASOPHILS ABSOLUTE AUTO 0.04 K/mm3 (0.00-0.23); BASOPHILS PERCENT AUTO 0 % (0-2); EOSINOPHILS ABSOLUTE AUTO 0.05 K/mm3 (0.00-0.68); EOSINOPHILS PERCENT AUTO 0 % (0-6); Hematocrit 33.1 % (33.0-51.0); Hemoglobin 10.6 g/dL (11.5-16.0); Mean Corpuscular HGB 29.5 pg (26.0-34.0); Mean Corpuscular Volume 92 fL (80-100); Mean Platelet Volume 9.3 fL (9.1-12.4); Platelet Count 305 K/mm3 (150-400); RDW Coefficient Variation 15.3 % (11.7-14.2); RDW Standard Deviation 51.8 fL (35.1-46.3); Red Blood Cell Count 3.59 M/mm3 (3.80-5.20); White Blood Cell Count 14.46 K/mm3 (4.00-11.30)
[2022-02-26 04:24] LABS: IMMATURE GRAN ABSOLUTE AUTO 0.67 K/mm3 (0.00-0.10); IMMATURE GRAN PERCENT AUTO 5 % (0-1); LYMPHOCYTES ABSOLUTE AUTO 0.94 K/mm3 (0.84-5.20); LYMPHOCYTES PERCENT AUTO 7 % (21-46); MONOCYTES ABSOLUTE AUTO 0.91 K/mm3 (0.16-1.47); MONOCYTES PERCENT AUTO 6 % (4-13); NEUTROPHILS ABSOLUTE AUTO 11.85 K/mm3 (1.96-9.15); NEUTROPHILS PERCENT AUTO 82 % (41-73)
[2022-02-26 04:32] LABS: Albumin, Blood 2.4 g/dL (3.4-5.0); Anion Gap 5 mmol/L (6-16); Blood Urea Nitrogen 36 mg/dL (8-24); Bun/Creatinine Ratio 41.1 (12.0-20.0); CO2, Blood 27 mmol/L (21-32); Chloride, Blood 106 mmol/L (98-108); Creatinine, Blood 0.88 mg/dL (0.40-1.00); Glomerular Filtration Rate 74 (60-); Glucose, Blood 276 mg/dL (70-99); Phosphorus, Blood 2.2 mg/dL (2.5-4.9); Potassium, Blood 4.4 mmol/L (3.5-5.5); Sodium, Blood 138 mmol/L (136-145)
--- NOTE | 2022-02-26 06:37 | NUR ---
SHIFT SUMMARY: NO ACUTE CHANGES THIS SHIFT. PT REMAINS INTUBATED AND SEDATED WITH VERSED GTT 1 MG, KETAMINE 60 MLS, AND PROPOFOL GTT 50 MCG; FENTANYL TITRATED OFF AND PT TOLERATED WELL. ORDERS FOR 50-75 MCG FENTANYL Q3P FOR PAIN. PT HAVING COUGHING FITS WHEN TURNING AND COPIOUS AMOUNTS OF THINK, WHITE/YELLOW SECRETIONS FROM ETT. PT SETTLES AFTER REPOSITIONING AND MAINTAINS SPO2 92< AND RR 18-20. PT RECIEVED BED BATH THIS SHIFT AND NEW LINENS. PT HAS LOW PHOS THIS MORNING AND REPLACEMENTS ORDERED AND WAITING FOR MED FROM PHARMACY. WILL CONTINUE TO MONITOR UNTIL ONCOMING RN ARRIVES.
--- NOTE | 2022-02-26 11:00 | NUR ---
PT INTUBATED AND SEDATED. KETAMINE TURNED OFF THIS AM AND PT IS TOLERATING THE VENT SO FAR. PROPOFOL AND VERSED STILL RUNNING. PT GRIMACES TO PAIN BUT NO OTHER RESPONSE. WILL CONTINUE TO DECREASE SEDATION IF PT TOLERATES.
--- NOTE | 2022-02-26 18:08 | NUR ---
SUMMARY PT INTUBATED AND SEDATED. VERSED AND KETAMINE WAS STOPPED TODAY. ONLY PROPOFOL AND PRN FENTANYL AND ATIVAN FOR SEDATION. WHEN SEDATION IS TURNED DOWN PT IS ABLE TO MOVE ALL EXTREMITIES (WEAK), NODS YES AND NO TO QUESTIONS, AND OPENS EYE'S ON COMMAND. TOLERATING THE VENT WELL ON LESS SEDATION. MODERATE AMT OF THICK NEVES SECRETIONS FROM ETT TODAY. DAUGHTER VISITED TODAY AND WAS UPDATED BY DR. HERBERT. NO SIGN OF DISTRESS, NO OTHER CHANGES.
--- NOTE | 2022-02-26 19:15 | NUR ---
ASSUMED CARE OF PT @1900. PT SEDATED AND INTUBATED. PROPOFOL 40MCG/KG/MIN. ETT 8.0 24CM@TEETH. AC VC 16/410/10/40%. PG ONÉ INFUSING. 20GA IV R HAND PATENT W/SALINE LOCK. 18GA IV LAC PATENT W/SALINE LOCK. TF VITAL HP 15MLS/HR GOAL RATE. JONES CATH PATENT AND DRAINING TO GRAVITY.
[2022-02-27 03:54] LABS: Hematocrit 29.2 % (33.0-51.0); Hemoglobin 9.7 g/dL (11.5-16.0); Mean Corpuscular HGB 31.3 pg (26.0-34.0); Mean Corpuscular HGB Conc 33.2 g/dL (31.5-36.5); Mean Corpuscular Volume 94 fL (80-100); Mean Platelet Volume 9.4 fL (9.1-12.4); NRBC ABSOLUTE 0.03 K/mm3 (0.00-0.02); NRBC Auto 0.2 /100 WBC (0.0-0.2); Platelet Count 319 K/mm3 (150-400); RDW Coefficient Variation 15.4 % (11.7-14.2); RDW Standard Deviation 51.4 fL (35.1-46.3); White Blood Cell Count 12.46 K/mm3 (4.00-11.30)
[2022-02-27 04:07] LABS: Albumin, Blood 2.3 g/dL (3.4-5.0); Albumin/Globulin Ratio 0.6 (0.8-1.8); Bilirubin, Total 0.4 mg/dL (0.1-1.0); Calcium, Blood 9.2 mg/dL (8.5-10.1); Creatinine, Blood 0.82 mg/dL (0.40-1.00); Magnesium, Blood 3.2 mg/dL (1.6-2.4); Phosphorus, Blood 1.9 mg/dL (2.5-4.9); Potassium, Blood 4.6 mmol/L (3.5-5.5); Total Protein, Blood 6.3 g/dL (6.4-8.2)
--- NOTE | 2022-02-27 06:02 | NUR ---
SUMMARY NEURO/PSYCH/MOBILITY: PT REMAINS SEDATED. PROPOFOL 40MCG/KG/MIN. PT RESPONDS TO VERBAL STIMULI, TRIES TO OPEN EYES, SQUEEZES HANDS, NODS/SHAKES HEAD IN RESPONSE TO QUESTIONS. PT BECOMES MORE AGITATED WITH REPOSITIONING. FENTANYL GIVEN PRN. PT IS MAX ASSIST FOR ALL ADL'S. BSWR IN PLACE. RESP: INTUBATED W/VENT SETTINGS AC VC 16/410/10/40%. RR 16-22. SPO2 >92%. OCCASIONAL COUGHING. LUNG SOUNDS COARSE THROUGHOUT. THICK NEVES/WHITE SECRETIONS W/OCCASIONAL PINK TINGE. CARDIAC: CONTINUOUS CARDIAC MONITORING. PT HAD EPISODES OF TACHYCARDIA SEVERAL TIMES THROUGHOUT SHIFT. HR 80-90'S. SBP STABLE 130-140'S. GI: TF VITAL HP THROUGH OGT @15MLS/HR GOAL RATE. MINIMAL RESIDUALS. SMALL LIQUID/MUCOUS STOOL THIS SHIFT. : JONES CATH PATENT AND DRAINING DARK YELLOW URINE. 1100MLS OUT THIS SHIFT. SKIN: ASSESSMENT REMAINS UNCHANGED. IV ACCESS: 20GA R HAND INFUSING, PG NOÉ INFUSING, 18GA LAC SALINE LOCK.
--- NOTE | 2022-02-27 10:00 | NUR ---
PT INTUBATED AND SEDATED WITH PROPOFOL. ATIVAN AND FENTANYL FOR ADJUNCT SEDATION. PT DOES NOT TOLERATE BEING ON L SIDE WELL. ANY MOVEMENT CREATES COUGHING SPELL, BP INCREASES, AND HR INCREASES, PRN'S HELP. PT WILL OPEN EYE'S AT TIMES AND CAN MOVE EXTREMITIES BUT SLOW TO RESPOND TO COMMANDS.
--- NOTE | 2022-02-27 17:43 | NUR ---
SUMMARY PT INTUBATED AND SEDATED WITH PROPOFOL. WHEN SEDATION IS TURNED DOWN PT HAS COUGHING SPELLS THAT ARE DIFFICULT TO GET BACK UNDER CONTROL. PT WILL OPEN EYE'S AND DURAND. SEEMS TO BE WORSE WHEN PT IS POSITIONED ON L SIDE. HAD TO INCREASE SEDATION. USING ATIVAN AND FENTANYL IN ADJUNCT WITH SEDATION. NO OTHER CHANGES THIS SHIFT.
--- NOTE | 2022-02-27 19:15 | NUR ---
ASSUMED CARE OF PT @1900. PT IS SEDATED AND INTUBATED. PROPOFOL 50MCG/KG/MIN. AC VC 16/410/10/40%. RR 20, SPO2 >92%. CONTINUOUS CARDIAC MONITORING. HR 80-90'S, SBP 160-170'S. TF VITAL HP 15MLS/HR. JONES CATH PRESENT AND DRAINING TO GRAVITY. IV ACCESS: 20GA R HAND SALINE LOCK, 18GA LAC SALINE LOCK, PG NOÉ INFUSING. SBWR IN PLACE.
--- NOTE | 2022-02-27 20:20 | NUR ---
OGT PLACEMENT CXR FROM THIS AM SHOWED OGT NEEDED INSERTED 5 MORE CM FROM ORIGINAL PLACEMENT. OGT INSERTED FURTHER 5CM AND CXR OBTAINED. CALL MADE TO DR. FRAGA FOR OK TO USE OGT. DR. FRAGA CONFIRMED OGT IS OK TO USE.
[2022-02-28 04:03] LABS: Hematocrit 26.2 % (33.0-51.0); Hemoglobin 9.8 g/dL (11.5-16.0); Mean Corpuscular HGB 37.1 pg (26.0-34.0); Mean Corpuscular HGB Conc 37.4 g/dL (31.5-36.5); Mean Platelet Volume 9.3 fL (9.1-12.4); NRBC ABSOLUTE 0.02 K/mm3 (0.00-0.02); NRBC Auto 0.2 /100 WBC (0.0-0.2); Platelet Count 332 K/mm3 (150-400); RDW Coefficient Variation 21.2 % (11.7-14.2); RDW Standard Deviation 51.6 fL (35.1-46.3); Red Blood Cell Count 2.64 M/mm3 (3.80-5.20); White Blood Cell Count 12.66 K/mm3 (4.00-11.30)
[2022-02-28 04:04] LABS: Mean Corpuscular Volume 99 fL (80-100)
[2022-02-28 04:20] LABS: Calcium, Blood 8.9 mg/dL (8.5-10.1); Creatinine, Blood 0.71 mg/dL (0.40-1.00); Potassium, Blood 4.9 mmol/L (3.5-5.5)
[2022-02-28 04:47] LABS: Phosphorus, Blood 2.8 mg/dL (2.5-4.9)
--- NOTE | 2022-02-28 06:12 | NUR ---
SUMMARY: NO ACUTE EVENTS THIS SHIFT. NEURO/PSYCH/MOBILITY: PT SEDATED ON PROPOFOL 50MCG/KG/MIN. PT COUGHS AND OPENS EYES DURING REPOSITIONING. ATTEMPTS TO OPEN EYES WHEN ASKED. MAX ASSIST FOR ALL ADL'S. PERRL. PT IS LESS AGITATED ON HER LEFT SIDE AND SUPINE. RESP, HR, SBP INCREASE WHEN POSITIONED ON LEFT SIDE. INCREASE IN VENT INTOLERANCE/COUGHING WHEN ON LEFT SIDE COMPARED TO HER RIGHT SIDE. FENTANYL AND ROBITUSSIN GIVEN PRN. RESP: INTUBATED. AC VC 16/410/10/40%. LUNG SOUNDS ARE LESS COARSE THROUGH END OF SHIFT. RR 16-20, SPO2 >92%. CARDIAC: CONTINUOUS CARDIAC MONITORING. SR. HR 70-80'S. SBP 140-160'S. GI: NO BM THIS SHIFT. TF INFUSING @15MLS/HR GOAL RATE THROUGH OGT. NO RESIDUALS THIS SHIFT. : JONES IN PLACE AND DRAINING DARK YELLOW URINE TO GRAVITY. 1200MLS OUT THIS SHIFT. SKIN: ASSESSMENT REMAINS UNCHANGED. IV ACCESS: 20GA R HAND SALINE LOCK. PG RUE INFUSING.
--- NOTE | 2022-02-28 12:16 | NUR ---
REASSESSMENT PT REMAINS INTUBATED, PROPOFOL FOR SEDATION ALONG WITH FENTANYL AND ATIVAN PRN. WITH PROPOFOL AT 50 MCG/KG/MIN PT IS ABLE TO WEAKLY NOD YES OR NO TO BASIC QUESTIONS. LUNGS ARE CLEAR BUT VERY DIM. MODERATE AMT OF YELLOW SECRETIONS FROM ETT THIS MORNING. SR, BP ELEVATED WHEN SHE IS MORE ALERT, BUT COMES BACK DOWN SHE SETTLES DOWN. TOLERATING TUBE FEED. SUPPORSITORY GIVEN TO TRY AND STIMULATE A BM IT HAS BEEN SEVERAL DAYS FOR PT. PT ASLO RECEIVING DOCUSATE AND MILK OF MAG. JONES WITH 700ML OUT THIS AM. PT'S EVANS WAS AT THE BEDSIDE THIS MORNING AND UPDATED. DR. POSADAS ROUNDED AND GAVE ORDERS FOR ONE TIME ORDER FOR 5 UNITS OF LANTUS TO ASSIST WITH BLOOD SUGAR CONTROL.
--- NOTE | 2022-02-28 16:45 | NUR ---
SHIFT SUMMARY PT REMAINS INTUBATED AND SEDATED. SHE REQUIRED PRN ATIVAN AND FENTANYL THROUGHOUT THE DAY WITH TURNING TO HELP HER TOLERATE THE VENT. HER LUNGS REMAIN CLEAR BUT VERY DIM. SR, BP STABLE WITH SBP IN THE 140-150S MOST OF THE DAY. TOLERATING TUBE FEED, NO BM SO FAR THIS SHIFT. JONES WITH DARK YELLOW URINE. CONTINUING TO MONITOR.
--- NOTE | 2022-02-28 22:27 | NUR ---
ASSUMTION OF CARE/ASSESSMENT: ASSUMED CARE AT 1900. PT INTUBATED AND SEDATED AT THIS TIME; PROPOFOL GTT 55 MCG AND VENT SETTINGS AC/VC 16/410/10/40%. PT IS ATTEMPTING TO OPEN EYES WHEN NAMED CALLED BUT IT UNABLE TO FULLY OPEN. PT IS GRIMANCING TO PAIN STIMULI AT THIS TIME; NO PURPOSEFUL EXTREMITY MOVMENT OBSERVED BY THIS RN. PT LUNG SOUNDS ARE CLEAR T/O AND DIM BASES, SPO2 92< AND RR 16-18. DURING ETT SUCTIONING BLOOD-TINGED SPUTUM OBSEREVED. HR IN THE 70'S AND SBP 160'S. HYPOACTIVE BS IN ALL QUADRANTS, OGT INFUSING VHP @ 15 MLS/HR; ABD OBESE, FIRM. JONES IN PLACE WITH YELLOW, GREEN-TINGED, CLEAR URINE. NO BM NOTED YET; PT RECIEVING DSS. EXTREMITIES WARM WITH PPP X 4. PT R. HAND IV APPEARED TO BE INFILTRATED AND TAKEN OUT. NEW IV START IN L. HAND. UPDATED JESUS, NEURODIAGNOSTIC TECH, REGARDING NEW BLOOD-TINGED ETT SECRETIONS. R. HAND IV TAKEN OUT AND PRESSURE DRESSING PLACE AND PT BLEED THROUGH DRESSING AND ONTO PILLOW CASE ABOUT A 2-3 INCH SPOT. WILL CONTINUE TO MONITOR FOR ANY MORE SIGNS OF BLEEDING.
[2022-03-01 05:05] LABS: Hematocrit 27.1 % (33.0-51.0); Mean Corpuscular HGB 35.6 pg (26.0-34.0); Mean Corpuscular HGB Conc 36.9 g/dL (31.5-36.5); Mean Corpuscular Volume 96 fL (80-100); Mean Platelet Volume 9.2 fL (9.1-12.4); Platelet Count 363 K/mm3 (150-400); RDW Coefficient Variation 19.3 % (11.7-14.2); RDW Standard Deviation 50.4 fL (35.1-46.3); Red Blood Cell Count 2.81 M/mm3 (3.80-5.20); White Blood Cell Count 13.16 K/mm3 (4.00-11.30)
[2022-03-01 05:37] LABS: Percent Saturation 22.3 % (15.0-50.0)
[2022-03-01 05:38] LABS: Albumin, Blood 2.3 g/dL (3.4-5.0); Albumin/Globulin Ratio 0.5 (0.8-1.8); Bilirubin, Total 0.5 mg/dL (0.1-1.0); Bun/Creatinine Ratio 62.6 (12.0-20.0); Creatinine, Blood 0.66 mg/dL (0.40-1.00); Globulin, Blood 4.2 g/dL (2.2-4.0); Phosphorus, Blood 3.6 mg/dL (2.5-4.9); Total Protein, Blood 6.5 g/dL (6.4-8.2)
[2022-03-01 05:42] LABS: BAND PERCENT MAN 2 % (0-8); BASOPHILS PERCENT MAN 0 % (0-2); EOSINOPHILS PERCENT MAN 0 % (0-6); LYMPHOCYTES ABSOLUTE MAN 0.78 K/mm3 (0.84-5.20); LYMPHOCYTES PERCENT MAN 6 % (21-46); METAMYELOCYTE ABSOLUTE MAN 0.13 K/mm3 (0.00-0.00); METAMYELOCYTE PERCENT MAN 1 % (0-0); MONOCYTES ABSOLUTE MAN 0.65 K/mm3 (0.16-1.47); MONOCYTES PERCENT MAN 5 % (4-13); MYELOCYTE ABSOLUTE MAN 1.05 K/mm3 (0.00-0.00); MYELOCYTE PERCENT MAN 8 % (0-0); NEUTROPHILS ABSOLUTE MAN 10.52 K/mm3 (1.96-9.15); SEG NEUTROPHILS PERCENT MAN 78 % (41-73); TOTAL CELLS COUNTED 100
--- NOTE | 2022-03-01 06:29 | NUR ---
SHIFT SUMMARY: NO ACUTE CHANGES THIS SHIFT. PT REMAINS INTUBATED AND SEDATED WITH PROPOFOL GTT @ 55 MCG AND VENT SETTINGS AC/VC 16/410/10/40%. VSS THROUGHOUT THE SHIFT. PT RECIEVED BED BATH THIS SHIFT. PT HAF BLOOD-TINGED SECRETIONS FROM ETT AT THE BEGINNING OF THE SHIFT AND AGAIN AT 0400 REASSESSMENT. PT RECIEVED 2 DOSES OF FENTANYL PRN THROUGHOUT THE NIGHT TO HELP WITH TURNS AND THE BED BATH. WILL CONTINUE TO MONITOR UNTIL ONCOMING RN ARRIVES.
--- NOTE | 2022-03-01 07:49 | NUR ---
ASSUMED CARE PT IS INTUBATED W/ VENT SETTINGS AT 16/410/10/40%; SPO2 >92%. MAP >65. LUNG SOUNDS ARE CLEAR, BUT ARE MORE DIMINISHED ON THE LEFT SIDE. PROPOFOL AT 55MCG. SIGNIFICANT SCLERAL EDEMA NOTED ON THE RIGHT EYE.
--- NOTE | 2022-03-01 09:56 | NUR ---
UPDATE PT HAD COPIOUS AMOUNTS OF GREEN SECRETIONS WHEN LIZETH BLUE SUCTIONED NAIRS.
--- NOTE | 2022-03-01 17:11 | NUR ---
UPDATE NATHALIA "DAUGHTER" CALLED AND WANTED TO BE HERE FOR EXTUBATION. LIVES IN [place]. SHE WILL CALL TOMORROW FOR UPDATE ON HOW PT TOLERATES SBT.
--- NOTE | 2022-03-01 17:45 | NUR ---
SHIFT SUMMARY PT IS ALERT AND ORIENTED TO SELF/SURROUNDINGS. SPO2 >92% W/ 16/410/8/40%; >65. PROPOFOL AT 20MCG W/ PATIENT FOLLOWING COMMANDS AND ABLE TO SQUEEZE FINGERS. LOWER EXTREMITIES STILL ABSENT OF MOVEMENT. PASSIVE RANGE OF MOTION PERFORMED. PLANS TO DO SBT TOMORROW. DAUGHTER WANTS TO BE PRESENT FOR EXTUBATION
--- NOTE | 2022-03-01 19:22 | NUR ---
ASSUMPTION OF CARE PT CONTINUES TO BE VENTILATED VIA ETT WHICH IS INTACT AND PATENT AT THIS TIME. TF VIA OG TUBE. PROPOFOL IS INFUSING AT 30MCGS. PT RESPONDS TO PAIN. JONES IS INTACT AND PATENT DRAINING CLEAR YELLOW URINE. SR ON THE MONITOR W/BP WNL. NO ACUTE S/S OF DISTRESS NOTED AT THIS TIME.
[2022-03-02 04:58] LABS: Albumin, Blood 2.4 g/dL (3.4-5.0); Anion Gap 3 mmol/L (6-16); Blood Urea Nitrogen 35 mg/dL (8-24); Bun/Creatinine Ratio 52.6 (12.0-20.0); CO2, Blood 36 mmol/L (21-32); Calcium, Blood 9.3 mg/dL (8.5-10.1); Chloride, Blood 101 mmol/L (98-108); Creatinine, Blood 0.67 mg/dL (0.40-1.00); Glomerular Filtration Rate 99 (60-); Glucose, Blood 226 mg/dL (70-99); Phosphorus, Blood 3.9 mg/dL (2.5-4.9); Potassium, Blood 4.3 mmol/L (3.5-5.5); Sodium, Blood 140 mmol/L (136-145)
--- NOTE | 2022-03-02 07:29 | NUR ---
Received report from Mariela BLUE. Patient intubated and sedated. She has 8.0 ET and is 24 cm at teeth, with vent setting of 16/410/40/8 and sats 93%. She awakens to verbal stimuli and slowly knods yes and no to question. She currently denies any pain or needs. She has OG in place and is infusing VHP at 15 ml/hr and 30 ml water flushes Q4 which is at goal rate. She has 20ga IV to LH and is flushed and SL'd. She also has 20ga PowerGlide to NOÉ and has Propofol at 30 mcg/kg/min infusing. She has 14 Fr davenport draining to gravity ligh fam colored urine in adequate amounts. HR 77 and SR with BP of 137/69 and MAP >65. She moves UE with gross movements and have not seen any movements to LE. Oral care and repositioning done.
--- NOTE | 2022-03-02 09:30 | NUR ---
Dr Olvera has been by and quickly assessed patient. No new orders and will get up in chair. No changes to vent or gtt settings. Patient still respond to verbal stimuli.
--- NOTE | 2022-03-02 11:46 | NUR ---
Dr Olvera and resident by and full assessment. She was placed in recliner and restraints remains on. Sedation placed on standby and she was placed on PS 5/8 40% and sats 90%. Still able to respond to questions knodding her head. No other changes.
--- NOTE | 2022-03-02 13:27 | NUR ---
Pt. is in bed when I enter the room. Pt. displays evidence of understanding but is slow to respond. Pt. is still intubated but is able to establish eye contact and with affirming nods repond to my questions. Pt. displays evidence of being thankful for prayer. Will [place] back and check on Pt. later in the shift.
--- NOTE | 2022-03-02 13:30 | NUR ---
Dr Olvera in room and made vent adjustments and is PS 8/8 50% and sats >90%. She remains up in [facility] and has been a little more awake since off sedation. Daughter called and gave update
--- NOTE | 2022-03-02 13:30 | NUR ---
Patients PRBC still infusing. He is getting US RUQ. He has been resting since last dose of Ativan. Dr Olvera in room and made vent adjustments and is PS 8/8 50% and sats >90%. She remains up in [facility] and has been a little more awake since off sedation.
--- NOTE | 2022-03-02 16:00 | NUR ---
Placed patient back on AC/VC+ 16/410/8/50 at 1440 r/t increased RR and agitation. Propofol was re-started and at 30 mcg/kg/min at 1400 without success. She was put back in bed at 1540 and repositioned. Patient alert to verbal stimuli. Fo0ley remains patent with good urine out put post lasix.
--- NOTE | 2022-03-02 18:03 | NUR ---
Patient has been riding the vent since back to bed. Repositioned and boosted in bed. Her Propofol is currently at 30 mcg/kg/min and staill arouses to verbal stimuli. Very minimal UE movement and no LE movement even while off sedation. She remains with 8.0 ET and 24 cm at teeth. Vent settings of AC/VC+ 16/410/50/8 and sats >90%. VSS. Minimal secretions frothy to yellow thin. Family and significant other by for a little while. Dr Olvera informed of going back on vent.
--- NOTE | 2022-03-02 19:30 | NUR ---
ASSUMPTION OF CARE PT CONTINUES TO BE SEDATED AND VENTILATED WITH SETTINGS AC/VC 16/410/8 50% FIO2. MAINTAINS SPO2 >93%. SEDATED WITH PROPOFOL. RESPONDS TO VERBAL STIMULI WITH GAG/COUGH REFLEXES PRESENT. CONTINIOUS TF VIA OG @ GOAL RATE. BOTH ETT AND OG TUBES IN PLACE AND SECURED. JONES IN PLACE, PATENT AND DRAINING CLEAR/YELLOW URINE TO GRAVITIY. BP STABLE WITH HR SR IN THE 90'S. NADN NOTED AT THIS TIME
[2022-03-03 04:34] LABS: Albumin, Blood 2.3 g/dL (3.4-5.0); Anion Gap 3 mmol/L (6-16); Blood Urea Nitrogen 53 mg/dL (8-24); Bun/Creatinine Ratio 68.8 (12.0-20.0); CO2, Blood 38 mmol/L (21-32); Chloride, Blood 101 mmol/L (98-108); Creatinine, Blood 0.77 mg/dL (0.40-1.00); Glomerular Filtration Rate 87 (60-); Glucose, Blood 209 mg/dL (70-99); Phosphorus, Blood 3.4 mg/dL (2.5-4.9); Sodium, Blood 142 mmol/L (136-145)
--- NOTE | 2022-03-03 06:14 | NUR ---
SHIFT SUMMARY PT REMAINS SEDATED WITH PROPOFOL RUNNING AND ON VENT WITH SETTINGS AC/VC 16/410/8 50% FIO2. PT ALSO RECEIVING CONTINIOUS TF @ GOAL RATE. BOTH ETT, VENT, AND OG ARE PATENT AND SECURED IN PLACE. PT MAINTAINS SPO2 >90% ON THESE VENT SETTIINGS WELL TOLERATED THE VENT WELL T/O THE SHIFT. BP AND HR REMAINED STABLED WITH SR/80'S. JONES IN PLACE PATENT, DRAINING MARICRUZ COLORED URINE TO GRAVITY. PT REPOSITIONED AND RESTRAINTS FREQUENTLY ASSESS FOR SKIN BREAKDOWN. PAIN MANAGED PER EMAR. NADN, VSS T/O THE SHIFT
--- NOTE | 2022-03-03 07:15 | NUR ---
Received report from Elder BLUE. She is intubated and sedated with 8.0 ET and 24 cm at teeth with vent settings of AC/VC+ 16/410/8/50 and sats 92%. She is currently resting riding vent and minimal coughing. She has OG in place infusing Glucerna 1.2 at 20 ml/hr and 200 ml water flushes Q4. She has thick moderate secretions through ET. She has 20ga PowerGlide, dressing intact and site WNL's and is infusing Propofol at 30 mcg/kg/min. She has 20ga IV in LH flushed and SL'd. She has 16Fr davenport draining to gravity light fam colored urine. Minimal response to arouse with verbal stimuli while resting. repositioned and oral care.
--- NOTE | 2022-03-03 09:30 | NUR ---
Patient resting on same vent setting and no changes to Propofol. patient arouses to verbal stimuli and responds knodding yes and or no. Minimal extremity movement UE and no movements to LE's. Senior patent with light fam urine and adequate amount of output. Spoke with resident about free water intake.
[2022-03-03 11:20] LABS: Hematocrit 34.6 % (33.0-51.0); Hemoglobin 10.9 g/dL (11.5-16.0); Mean Corpuscular HGB 29.3 pg (26.0-34.0); Mean Corpuscular HGB Conc 31.5 g/dL (31.5-36.5); Mean Corpuscular Volume 93 fL (80-100); Mean Platelet Volume 9.6 fL (9.1-12.4); Platelet Count 427 K/mm3 (150-400); RDW Coefficient Variation 15.3 % (11.7-14.2); RDW Standard Deviation 50.7 fL (35.1-46.3); Red Blood Cell Count 3.72 M/mm3 (3.80-5.20); White Blood Cell Count 16.97 K/mm3 (4.00-11.30)
--- NOTE | 2022-03-03 11:30 | NUR ---
Patient placed in chair at 1045 and spon. mode 8/8 50% and sedation on SB at 1050 and tolerating well. Propofol back on at 1115 for agiatation and anxiety. Family at bedside. No other changes
[2022-03-03 11:50] LABS: BAND PERCENT MAN 6 % (0-8); BASOPHILS PERCENT MAN 0 % (0-2); EOSINOPHILS PERCENT MAN 0 % (0-6); LYMPHOCYTES ABSOLUTE MAN 0.84 K/mm3 (0.84-5.20); LYMPHOCYTES PERCENT MAN 5 % (21-46); METAMYELOCYTE ABSOLUTE MAN 0.33 K/mm3 (0.00-0.00); METAMYELOCYTE PERCENT MAN 2 % (0-0); MONOCYTES ABSOLUTE MAN 1.01 K/mm3 (0.16-1.47); MONOCYTES PERCENT MAN 6 % (4-13); MYELOCYTE ABSOLUTE MAN 0.16 K/mm3 (0.00-0.00); MYELOCYTE PERCENT MAN 1 % (0-0); NEUTROPHILS ABSOLUTE MAN 14.59 K/mm3 (1.96-9.15); SEG NEUTROPHILS PERCENT MAN 80 % (41-73); TOTAL CELLS COUNTED 100
--- NOTE | 2022-03-03 11:50 | NUR ---
Dr Olvera and resident in room assessing patient and made chages to vent to reduce anxiety. Vent settings of 20/8 60% and propofol at 30 mcg/kg/min and patient more comfortable with breathing. Talk with Dr Olvera and he reduced free water to 30 ml/hr and same rate on feeding.
--- NOTE | 2022-03-03 14:28 | NUR ---
Patient has been resting quietly on current vent settings of Spon. 18/8 60% and Propofol of 30 mcg/kg/min. Dr Olvera in room. Urine output adequate and davenport patent. No other significant changes. Patient remains up in chair.
--- NOTE | 2022-03-03 15:30 | NUR ---
There has been no changes to vent settings or gtt's. Dr Olvera ordered CPT and will start after putting back to bed when RT available. Senior paten and at least 700 ml's in urine bag for today. Still arouses to verbal stimuli and answers questions with knodding yes or no.
--- NOTE | 2022-03-03 18:00 | NUR ---
Patient has been placed back to bed and RT setup CPT. Her current vent settings are Spon. 16/8 60% and sats 96%. Propofol continues at 30 mcg/kg/min in NOÉ PowerGlide. Senior had 750 ml's of light fam urine.. Still little movements from UE and zero from LE. Significant other at bedside. OG continues to infuse Glucerna 1.2 at 20 ml's and 30 ml water flushes q4. Dr Olvera wants to use Precedex when weaning in am in the hopes that she will take deeper breaths.
--- NOTE | 2022-03-03 21:25 | NUR ---
CARE ASSUMPTION PT LYING IN BED APPEARING COMFORTABLE IN NO DISTRESS. O2 SATS >92% ON VENT. PT SEDATED ON PROPROFOL. FAMILY AT BEDSIDE DURING SHIFT CHANGE. VSS. PT HAS FOLEYT CATHETER THAT IS DRAINING MARICRUZ COLORED URINE.
--- NOTE | 2022-03-04 06:28 | NUR ---
COMMERCIAL MANAGEMENT ACCOUNTANT SUMMARY PT MAINTAINED O2 SATS >92% ALL SHIFT ON PS OF 18 W A PEEP OF 8 AND FIO2 AT 60%, PS CHANGED FROM 18 TO 16 THIS AM BY RT W NO DROP IN OXYGENATION OR CHAGE IN RR. PT AFEBRILE THIS SHIFT. BP WNL AND STABLE. PT SR 70'S-80'S THIS SHIFT. PT RECIEVED FULL BEDBATH AND Q2H REPOSITIONING TOLERATING THE MOVEMENT WELL. PT OPENING HER EYES THROUGHOUT THE SHIFT AND NODDING HER HEAD TO ANSWER YES OR NO WHEN ASKED IF SHE WAS IN PAIN, PT DENYING PAIN THIS SHIFT. TF RUNNING AT GOAL RATE PT TOLERATING THEM WELL. JONES CATHETER PATENT AND DRAINING 750ML MARICRUZ URINE THIS SHIFT. WILL REPORT TO ONCOMING RN.
[2022-03-04 06:41] LABS: BASOPHILS ABSOLUTE AUTO 0.04 K/mm3 (0.00-0.23); BASOPHILS PERCENT AUTO 0 % (0-2); EOSINOPHILS ABSOLUTE AUTO 0.01 K/mm3 (0.00-0.68); EOSINOPHILS PERCENT AUTO 0 % (0-6); Hematocrit 30.8 % (33.0-51.0); Hemoglobin 10.1 g/dL (11.5-16.0); IMMATURE GRAN ABSOLUTE AUTO 0.43 K/mm3 (0.00-0.10); IMMATURE GRAN PERCENT AUTO 2 % (0-1); LYMPHOCYTES ABSOLUTE AUTO 1.25 K/mm3 (0.84-5.20); LYMPHOCYTES PERCENT AUTO 6 % (21-46); MONOCYTES ABSOLUTE AUTO 0.67 K/mm3 (0.16-1.47); MONOCYTES PERCENT AUTO 3 % (4-13); Mean Corpuscular HGB 29.5 pg (26.0-34.0); Mean Corpuscular HGB Conc 32.8 g/dL (31.5-36.5); Mean Corpuscular Volume 90 fL (80-100); Mean Platelet Volume 9.8 fL (9.1-12.4); NEUTROPHILS ABSOLUTE AUTO 17.73 K/mm3 (1.96-9.15); NEUTROPHILS PERCENT AUTO 88 % (41-73); Platelet Count 382 K/mm3 (150-400); RDW Coefficient Variation 15.3 % (11.7-14.2); RDW Standard Deviation 50.2 fL (35.1-46.3); Red Blood Cell Count 3.42 M/mm3 (3.80-5.20); White Blood Cell Count 20.13 K/mm3 (4.00-11.30)
[2022-03-04 06:42] LABS: Bun/Creatinine Ratio 77.3 (12.0-20.0); Calcium, Blood 9.3 mg/dL (8.5-10.1); Creatinine, Blood 0.79 mg/dL (0.40-1.00); Potassium, Blood 3.9 mmol/L (3.5-5.5)
--- NOTE | 2022-03-04 08:54 | NUR ---
CARE OF PT ASSUMED AT 0700. PT SEDATED ON PROPOFOL AT 30MCG FOR DRE OF MECH VENT. PT ON SPONT 16/, 60% FIO2. SATS >95%. PT HAS COPIOUS AMTS OF THICK YELLOW SPUTUM. LUNGS COARSE, WITH COARSE CRACKLES TO LLL, SCATTERED WHEEZES TO L SIDE. PT ABLE TO NOD HEAD APPROP. TO QUESTIONS. NODS NO TO PAIN, NODS YES TO COLD, WARM BLANKET PLACED. TUBE FEEDS AT GOAL. CPT RUNNING NOW.
--- NOTE | 2022-03-04 10:47 | NUR ---
DR DIGGS IN TO SEE WITH DR WILDER. FULL UPDATE GIVEN. PLAN: XRAY, BLOOD CX, CHANGE IN ABX, DECREASE PROP DRE, ADD PRECEDEX IF NEEDED FOR ANXIETY, OOB TO CHAIR DRE, ENEMA.
--- NOTE | 2022-03-04 12:04 | NUR ---
VERY LITTLE STOOL BACK FROM ENEMA. SKIN IS INTACT, NO REDNESS TO BACK SIDE. SKIN TO FOLDS IMPROVED, LESS RED THAN CHARTED PREVIOUSLY. PT AWAKENS TO VOICE ABLE TO SQUEEZE HAND TO COMMAND, SHAKES HEAD NO TO ANXIETY, BUT HAS BEEN ANXIOUS WHEN PROPOFOL WEANED DOWN. PRECEDEX STARTED AT 0.2MCG. MRSA SWAB OF NARES SENT. LONG ACTING INSULIN INCREASED.
--- NOTE | 2022-03-04 13:28 | NUR ---
PT UP TO CHAIR USING LIFT W 2 RN AND 1 RT ASSIST.
--- NOTE | 2022-03-04 15:21 | NUR ---
PT PLACED IN HIGH FOWLERS UP IN CHAIR WITH FEET DOWN. PROPOFOL AT 5MCG, PRECEDEX AT .2MCG. PT AWAKE AND CALM. DAUGHTER AT BEDSIDE, GIVEN UPDATE. DR DIGGS AT BEDSIDE, SETTINGS CHANGED TO 8/5, 50%. PT DRE WELL.
--- NOTE | 2022-03-04 17:31 | NUR ---
PT BACK TO BED USING LIFT. SMALL LIQUID BM CLEANED. PT TOLERATING CURRENT VENT SETTINGS 8/5, 50%. TUBE FEEDS CHANGED OUT/NEW.
--- NOTE | 2022-03-05 05:12 | NUR ---
PT CALM AND RESTING ALL NIGHT. RESP STATUS UNCHANGED. SUCTIONING NEEDED. VSS. PT RESPONDING WITH NODDING.
[2022-03-05 05:31] LABS: BASOPHILS ABSOLUTE AUTO 0.02 K/mm3 (0.00-0.23); BASOPHILS PERCENT AUTO 0 % (0-2); EOSINOPHILS ABSOLUTE AUTO 0.01 K/mm3 (0.00-0.68); EOSINOPHILS PERCENT AUTO 0 % (0-6); Hematocrit 29.7 % (33.0-51.0); Hemoglobin 9.4 g/dL (11.5-16.0); IMMATURE GRAN ABSOLUTE AUTO 0.24 K/mm3 (0.00-0.10); IMMATURE GRAN PERCENT AUTO 2 % (0-1); LYMPHOCYTES ABSOLUTE AUTO 1.16 K/mm3 (0.84-5.20); LYMPHOCYTES PERCENT AUTO 8 % (21-46); MONOCYTES ABSOLUTE AUTO 0.85 K/mm3 (0.16-1.47); MONOCYTES PERCENT AUTO 6 % (4-13); Mean Corpuscular HGB 28.8 pg (26.0-34.0); Mean Corpuscular HGB Conc 31.6 g/dL (31.5-36.5); Mean Corpuscular Volume 91 fL (80-100); Mean Platelet Volume 9.4 fL (9.1-12.4); NEUTROPHILS ABSOLUTE AUTO 13.23 K/mm3 (1.96-9.15); NEUTROPHILS PERCENT AUTO 85 % (41-73); Platelet Count 379 K/mm3 (150-400); RDW Standard Deviation 49.5 fL (35.1-46.3); Red Blood Cell Count 3.26 M/mm3 (3.80-5.20); White Blood Cell Count 15.51 K/mm3 (4.00-11.30)
[2022-03-05 06:02] LABS: Bun/Creatinine Ratio 85.9 (12.0-20.0); Calcium, Blood 9.2 mg/dL (8.5-10.1); Creatinine, Blood 0.71 mg/dL (0.40-1.00); Potassium, Blood 3.8 mmol/L (3.5-5.5)
--- NOTE | 2022-03-05 07:00 | NUR ---
ASSUME CARE: I have assumed care of this patient.
--- NOTE | 2022-03-05 11:49 | NUR ---
EXTUBATION: pt extubated to 8L oxymizer.
[2022-03-05 11:53] LABS: Vancomycin, Trough 22.5 ug/mL (5.0-10.0)
--- NOTE | 2022-03-05 18:42 | NUR ---
SHIFT SUMMARY: pt extubated this morning. sedation titrated off. NEURO: awake and oriented to person, place, month, and situation. Extremtities weak RESPIRATORY: HHFNC 40L/min 35%. pt tolerating well. coughing up large amounts of thick, tenatious sputum. CARDIAC: SR. BPs stable. BUE, BLE peripheral pulses 3+ GI/: OG and tube feeds discontinued with extubation. Bedside swallow successful SKIN: no new breakdown PSYCH/SOCIAL: family at bedside and supportive throughout the day.
[2022-03-06 04:01] LABS: BASOPHILS ABSOLUTE AUTO 0.02 K/mm3 (0.00-0.23); BASOPHILS PERCENT AUTO 0 % (0-2); EOSINOPHILS ABSOLUTE AUTO 0.01 K/mm3 (0.00-0.68); EOSINOPHILS PERCENT AUTO 0 % (0-6); Hemoglobin 9.3 g/dL (11.5-16.0); IMMATURE GRAN ABSOLUTE AUTO 0.15 K/mm3 (0.00-0.10); IMMATURE GRAN PERCENT AUTO 1 % (0-1); LYMPHOCYTES ABSOLUTE AUTO 1.15 K/mm3 (0.84-5.20); LYMPHOCYTES PERCENT AUTO 8 % (21-46); MONOCYTES ABSOLUTE AUTO 0.69 K/mm3 (0.16-1.47); MONOCYTES PERCENT AUTO 5 % (4-13); Mean Corpuscular HGB 30.1 pg (26.0-34.0); Mean Corpuscular HGB Conc 33.2 g/dL (31.5-36.5); Mean Corpuscular Volume 91 fL (80-100); Mean Platelet Volume 9.3 fL (9.1-12.4); NEUTROPHILS ABSOLUTE AUTO 12.92 K/mm3 (1.96-9.15); NEUTROPHILS PERCENT AUTO 87 % (41-73); Platelet Count 405 K/mm3 (150-400); Red Blood Cell Count 3.09 M/mm3 (3.80-5.20); White Blood Cell Count 14.94 K/mm3 (4.00-11.30)
[2022-03-06 04:16] LABS: Bun/Creatinine Ratio 71.9 (12.0-20.0); Calcium, Blood 9.1 mg/dL (8.5-10.1); Creatinine, Blood 0.63 mg/dL (0.40-1.00); Magnesium, Blood 2.3 mg/dL (1.6-2.4); Phosphorus, Blood 3.1 mg/dL (2.5-4.9); Potassium, Blood 4.1 mmol/L (3.5-5.5)
--- NOTE | 2022-03-06 07:00 | NUR ---
ASSUME CARE: I have assumed care of this patient.
--- NOTE | 2022-03-06 07:00 | NUR ---
PT ANXIOUS LAST NIGHT REQUIRING A SMALL DOSE OF DEX TO BE TURNED BACK ON TO CALM PT DOWN SO SHE WAS ABLE TO SLEEP. VSS. NO OTHER EVENTS OVERNIGHT. PT REMAINS STABLE ON HFNC.
--- NOTE | 2022-03-06 19:19 | NUR ---
SHIFT SUMMARY: NEURO: a/o x 4. DURAND though weak RESPIRATORY: airvo 40L/min at 35% CARDIAC: sinus rhythm with stable BPs GI/: tolerating meals. up to commode with lift today; very small BM. Senior draining to gravity. SKIN: no new breakdown PSYCH/SOCIAL: family at bedside and supportive.
[2022-03-07 03:52] LABS: BASOPHILS ABSOLUTE AUTO 0.02 K/mm3 (0.00-0.23); BASOPHILS PERCENT AUTO 0 % (0-2); EOSINOPHILS ABSOLUTE AUTO 0.09 K/mm3 (0.00-0.68); EOSINOPHILS PERCENT AUTO 1 % (0-6); Hematocrit 29.6 % (33.0-51.0); Hemoglobin 9.7 g/dL (11.5-16.0); IMMATURE GRAN ABSOLUTE AUTO 0.14 K/mm3 (0.00-0.10); IMMATURE GRAN PERCENT AUTO 1 % (0-1); LYMPHOCYTES ABSOLUTE AUTO 2.15 K/mm3 (0.84-5.20); LYMPHOCYTES PERCENT AUTO 15 % (21-46); MONOCYTES PERCENT AUTO 7 % (4-13); Mean Corpuscular HGB 29.3 pg (26.0-34.0); Mean Corpuscular HGB Conc 32.8 g/dL (31.5-36.5); Mean Corpuscular Volume 89 fL (80-100); Mean Platelet Volume 9.3 fL (9.1-12.4); NEUTROPHILS ABSOLUTE AUTO 10.73 K/mm3 (1.96-9.15); NEUTROPHILS PERCENT AUTO 76 % (41-73); Platelet Count 444 K/mm3 (150-400); RDW Coefficient Variation 14.6 % (11.7-14.2); RDW Standard Deviation 46.9 fL (35.1-46.3); Red Blood Cell Count 3.31 M/mm3 (3.80-5.20); White Blood Cell Count 14.13 K/mm3 (4.00-11.30)
[2022-03-07 04:10] LABS: Bun/Creatinine Ratio 52.1 (12.0-20.0); Calcium, Blood 8.9 mg/dL (8.5-10.1); Creatinine, Blood 0.63 mg/dL (0.40-1.00); Magnesium, Blood 2.2 mg/dL (1.6-2.4); Phosphorus, Blood 3.2 mg/dL (2.5-4.9); Potassium, Blood 3.7 mmol/L (3.5-5.5)
--- NOTE | 2022-03-07 06:20 | NUR ---
PT SLEEING INTERMITTENTLY TONIGHT. PT SEEMING SLIGHTLY MORE CONFUSED TONIGHT THAN LAST NIGHT. STILL ABLE TO ANSWER A/O QUESTIONS CORRECTLY BUT PT FORGETFUL. VSS. NO CHANGES TO HER RESP STATUS. HFNC AT THE SAME SETTINGS BEGINNING OF SHIFT.
--- NOTE | 2022-03-07 07:00 | NUR ---
ASSUME CARE: I have assumed care of this patient.
[2022-03-07 12:02] LABS: Stool Occult Blood Guaiac 1 Neg (Neg)
--- NOTE | 2022-03-07 18:49 | NUR ---
SHIFT SUMMARY: NEURO: pt up in chair for two hours today. she is a/o x 4 and DURAND though she's very weak. RESPIRATORY: airvo settings unchanged from yesterday. GI/: large BM in bedside commode using lift. Senior patent and draining to gravity. Tolerating meals with some nausea. SKIN: no new breakdown PSYCH/SOCIAL: family at bedside and supportive. pt talking to her mother over the phone at this time.
--- NOTE | 2022-03-08 05:15 | NUR ---
PT SLEEPING MOSTLY THROUGH THE NIGHT. NO EVENTS OVER NIGHT. VSS. RESP STATUS UNCHANGED.
--- NOTE | 2022-03-08 09:00 | NUR ---
ASSUMED CARE: REPORT RECEIVED FROM SYLVIA CAMPOVERDE RN. ASSUMED CARE OF THIS PT AT APPROX 0700. ON ASSESSMENT, THE PT IS AWAKE, A&O TO ALL. SHE IS COOPERATIVE W/ STAFF DESPITE FEELING FRUSTRATED IN GENERAL. SHE EXPRESSES DESIRES TO GET OOB & MOVING SO THAT SHE "CAN GO HOME TOMORROW." LS ARE COARSE, DIM IN BASES. PT ON AIRVO W/ SETTINGS: 40 L/MIN & 32% FIO2 CURRENTLY, O2 SATS 92%. MONITOR SHOWS SR W/ HR 70s, BP STABLE. PT HAS NO GI COMPLAINTS, TOLERATING PO INTAKE WELL. SPEECH THERAPY MARY COMPLETED THIS AM. JONES PATENT/ DRAINING YELLOW URINE. SKIN CONDITION OVERALL FRAGILE, INTACT. Q2H REPOSITIONING TO MAINTAIN SKIN INTEGRITY. WILL CONTINUE TO MONITOR & UPDATE NEEDED.
--- NOTE | 2022-03-08 12:17 | NUR ---
TRANSFER OF CARE: REPORT HAS BEEN GIVEN TO THERON Greene RN TO ASSUME CARE.
--- NOTE | 2022-03-08 18:35 | NUR ---
DAY SHIFT SUMMARY TOOK OVER PT @1214. PT ORIENTED X4, VSS PER PT TREND. DENIES PAIN. NONPITTING EDEMA IN LOWER EXTREMITIES. PT UP W/PT TODAY AND ABLE TO SIT IN CHAIR FOR SEVERAL HOURS. TOLERATED WELL. SOME NAUSEA AFTER MEALS AND ORDER FOR PRN NAUSEA MEDS AFTER CONVERSATION WITH DR. ROSEN. FAMILY IN ROOM MOST OF DAY. SR ON TELEMETRY, 30L @ 41% ON AIRVO. WILL PASS ON TO ED BLUE
--- NOTE | 2022-03-09 | NUR ---
PATIENT RESTING WITH EYES CLOSED. APPEARS COMFORTABLE IN NAD
--- NOTE | 2022-03-09 04:49 | NUR ---
PATIENT IS AWAKE AND REQUESTING TAPIOCA PUDDING. PATIENT DENIES ANY PAIN/DISCOMFORT/CONCERNS
--- NOTE | 2022-03-09 07:49 | NUR ---
ASSUMED CARE PT IS ALERT AND ORIENTED X4. NO C/O OF SOB OR CP. PT IS WEAK. SPO2 >92% ON AIRVO 40L 33%. MAP >65.
--- NOTE | 2022-03-09 17:24 | NUR ---
SHIFT SUMMARY PT IS ALERT AND ORIENTED X4 IN CHAIR W/ AIRVO AT 40L SPO2 >92%. MAP >65 WITH SYSTOLICS IN THE 140'S/150'S. PT REQUIRES SOME REASSURANCES THAT SHE'S MADE A LOT OF PROGRESS, BUT IS MOTIVATED TO AMBULATE EARLY AND HAS STOOD 4 TIMES TODAY W/ OT AND PT. GAVE PT HAND TOWEL W/ COBAND TO HELP PIGMENT PRESSER STRENGTH. PT STILL HAS A WEAK COUGH, BUT HAS SUCTION AT HAND FOR SECRETIONS. NO C/O OF SOB OR CP TODAY.
--- NOTE | 2022-03-10 07:40 | NUR ---
ASSUMED CARE PT IS ALERT AND ORIENTED LYING IN BED. SPO2 >92% ON AIRVO 40L. MAP >65. PT HAD C/O'S OF GASSINESS. CONTINUES TO VERBALIZE MOTIVATION TO LEAVE AND WILLINGNESS TO ADHERE TO CAREPLAN.
--- NOTE | 2022-03-10 10:47 | NUR ---
UPDATE PT IS ON RA-2L NC W/ SPO2 >92%. RT AWARE.
--- NOTE | 2022-03-10 16:00 | NUR ---
TRANSFER PT TRANSFERED VIA BED TO ROOM 331 W/ NO DIFFICULTIES. PT EXPRESSED ANXIETY TOWARDS MOVING OUT OF UNIT, BUT WAS REASSURED THAT THIS WAS A GOOD STEP IN THE RIGHT DIRECTION.
--- NOTE | 2022-03-10 18:48 | NUR ---
SHIFT SUMMARY- PT TRANSFERED TO MEDICAL FLOOR FROM ICU 10. PT ALERT AND ORIENTED 2P MAX ASSIST WITH REPOSITION IN BED. LIFT PT, LIFT IN THE ROOM IS MALFUNCTIONING. PT WAS ABLE TO BE TRANSFERED BACK TO THE BED. PT FAMILY WAS AT THE BEDSIDE UNTIL JUST PRIOR TO SHIFT CHANGE. PT WORKED WITH PHYSICAL THERAPY THIS EVENING AND WAS ABLE TO DO 7 SIT TO STANDS FROM THE RECLINER. PT IS CURRENTLY IN BED, CALL LIGHT IN REACH NO S&S OF DISTRESS ON 2L O2 VIA NC, NO S&S OF DISTRESS NOTED AT THIS TIME WILL CTM AND PASS ON TO NIGHT RN IN BEDSIDE REPORT.
--- NOTE | 2022-03-10 19:26 | NUR ---
Called to meet with patient about her code staus. pt very anxious and repetative. She does not want to have to go back on vent. She wants dnr. She is focused on the difficulties of rehab and feels she cant do it anymore. Dsught at bedsie visibley upaset but shut down and minimal responses, Suggest she talk to her pulmonolgist for prognosis and discuss with her children. Assured her we will help he with her needs. She was to frail and repetative to confidently make a change to code status.
[2022-03-11 05:51] LABS: Hematocrit 30.1 % (33.0-51.0); Mean Corpuscular HGB 29.7 pg (26.0-34.0); Mean Corpuscular HGB Conc 33.2 g/dL (31.5-36.5); Mean Corpuscular Volume 89 fL (80-100); Platelet Count 436 K/mm3 (150-400); RDW Coefficient Variation 14.6 % (11.7-14.2); Red Blood Cell Count 3.37 M/mm3 (3.80-5.20); White Blood Cell Count 9.74 K/mm3 (4.00-11.30)
--- NOTE | 2022-03-11 06:07 | NUR ---
PAINTER SPRING SUMMARY: A&Ox4. PLEASANT AND COOPERATIVE WITH CARE. CALLS APPROPRIATELY AND IS ABLE TO COMMUNICATE NEEDS EFFECTIVELY. NO C/O PAIN T/O THE NIGHT. MAINTAINING SPO2 >90% ON 3L/min VIA NC. LABS DRAWNT HIS AM. STILL EXPERIENCING SOME INCREASED SECRETIONS FROM BEING INTUBATED; UTILIZING SUCTION AT BEDSIDE, INDEPENDENTLY. BILAT LUNGS VERY COARSE. POWERGLIDE NOÉ PATENT AND FLUSHES, BUT DOES NOT DRAW. SALINE LOCKED. VSS. NO ACUTE OCCURENCES T/O THE NIGHT. WILL REPORT TO ONCOMING RN.
[2022-03-11 06:27] LABS: Albumin, Blood 2.3 g/dL (3.4-5.0); Anion Gap 7 mmol/L (6-16); Blood Urea Nitrogen 20 mg/dL (8-24); Bun/Creatinine Ratio 29.7 (12.0-20.0); CO2, Blood 27 mmol/L (21-32); Calcium, Blood 9.1 mg/dL (8.5-10.1); Chloride, Blood 109 mmol/L (98-108); Creatinine, Blood 0.67 mg/dL (0.40-1.00); Glomerular Filtration Rate 99 (60-); Glucose, Blood 101 mg/dL (70-99); Phosphorus, Blood 3.1 mg/dL (2.5-4.9); Potassium, Blood 3.6 mmol/L (3.5-5.5); Sodium, Blood 143 mmol/L (136-145)
--- NOTE | 2022-03-11 19:29 | NUR ---
SHIFT SUMMARY- PT ALERT AND ORIENTED ABLE TO MAKE HER NEEDS KNOWN. PT IS A LIFT PT, LIFT WAS CHECKED OUT TODAY AND APPROVED IN WORKING ORDER. PT WAS ABLE TO GET UP VIA LIFT TO THE BSC AND HAVE A LARGE FIRM STOOL THIS EVENING. THEN THE LIFT WAS USED TO MOVE THE PT TO THE RECLINER SO SHE COULD WORK WITH PHYSICAL THERAPY. PT IS CURRENTLY IN BED, CALL SYDNEE NICHOLS, REPORT COMPLETED WITH NIGHT SU RAHMAN.
--- NOTE | 2022-03-12 06:56 | NUR ---
RADIOLOGICAL TECHNOLOGIST SUMMARY: A&Ox4. PLEASANT AND COOPERATIVE WITH CARE. CALLS APPROPRIATELY AND ABLE TO COMMUNICATE NEEDS EFFECTIVELY. VSS T/O NIGHT. MAINTAINING SPO2 >93% ON 2L/min VIA NC. NO C/O PAIN OR DISCOMFORT. JONES PATENT AND DRAINING TO GRAVITY. NO ACUTE CONCERNS T/O THE NIGHT. WILL REPORT TO ONCOMING RN.
--- NOTE | 2022-03-12 19:36 | NUR ---
SHIFT SUMMARY: PT A&O X4, PLEASANT AND COOPERATIVE. PT EVAULATED PT 2 PERSON STAND TO BSC WITH FWW AND GAIT BELT. PT CATHETER DC'D PER PROVIDER ORDERS. PT ABLE TO VOID POST CATHETER REMOVAL. PT CONTIENT OF URINE THROUGHOUT SHIFT TO BS. PT 2 PERSON ASSIST TO BSC WITH FWW AND GAIT BELT. PT PAIN MANAGED WITH PRN MEDICATION THROUGHOUTSHIFT FOR MIGRAINE. PT FAMILY AT BEDSIDE THROUGHOUT SHIFT. PT UP ION CHAIR MOST OF THE SHIFT. PT ON RA SAT'S 96%. PT IN BED WITH CALL LIGHT WITHIN REACH.
--- NOTE | 2022-03-13 07:30 | NUR ---
SHIFT SUMMARY Pt AOx4 and is a lift transfer. She was placed on droplet precautions for testing positive for RSV. Wore CPAP t/o the night with 3L O2 bleed in, maintaned O2 sat between 90-93. Pt requested bedpan to void this am, was unable to produce urine and did not produce any last night. Notified day RN that pt needs a bladder scan and possible straight cath. Pt on tele and ran sinus tatyana in the low 50's with an irregular heart rate. No acute events, pleasant and cooperative with care.
--- NOTE | 2022-03-13 19:31 | NUR ---
SHIFT SUMMARY: PT A&O X4 PLEASANT AND HAPPY. PT UP IN CHAIR FOR ALL MEALS. PT CONTIENT OF BLADDER AND BOWEL THROUGHOUT SHIFT USING BSC. PT ABLE TO STAND WITH 2 PERSON ASSIST WITH FWW AND GAIT BELT TO USE BSC. PT HAD NO COMPLAINTS OF PAIN THROUGHOUT THE SHIFT. PT IN CHAIR WITH CALL LIGHT WITHIN REACH.
--- NOTE | 2022-03-13 20:40 | NUR ---
PT VOICED MANY CONCERNS, FIRST THAT HER CALL LIGHT WASN'T ANSWERED (APPARENTLY QUALITY ASSURANCE CLERK WAS CALLED BUT DIDN'T RESPOND). THIS RN NEVER VOCERA'D. PT REPORTS SORE THROAT - PROVIDED HUMIDIFIED 02, 3L O2 ON VIA NC. PT TRANSFERRED FROM CHAIR TO BED WITH A LIFT. PT ALSO REPORTED REQUEST FOR PAIN PILL - SEE EMAR FOR FOLLOW UP. PT ALSO REPORTED CONCERNS FROM DAY SHIFT TODAY. ADDRESSED PT'S CONCERNS. PT CALMED AFTER ADDRESSING HER CONCERNS, AND I REPORTED I WOULD GET BACK TO HER ON QUESTION ABOUT REMOVING ISOLATION FOR RSV. CALL LIGHT WITHIN REACH. BED IN LOW POSITION. FLUIDS AT BEDSIDE.
--- NOTE | 2022-03-14 06:31 | NUR ---
SHIFT SUMMARY - PT HAS BEEN PLEASANT, AND COOPERATIVE WITH CARE, AFTER HER INITIAL CONCERNS WERE ADDRESSED. PT IS REQUESTING TO BE TAKEN OUT OF ISOLATION - SPOKE WITH THE CN, AND SHE RELAYS INFECTION CONTROL WILL NEED TO BE CONTACTED ON TUESDAY (WILL RELAY THIS INFORMATION TO ONCOMING SHIFT.) I SPOKE TO DR. TONY WARD, PT IS REQUESTING FLU & PNEUMONIA VAX - HE REQUESTED AM TEAM ADDRESS THIS - I WILL RELAY THIS TO AM RN THAT PT IS REQUESTING THESE. I DID RELAY THE ABOVE INFORMATION TO THE PT. [facility] LIFT X2 TO [facility] WITH 2 PERSON ASSIST. PT IS MORBIDLY OBESE. PT REPORTS BEING AGREEABLE TO SNF AT DISCHARGE. SHE ALSO RELAYED PHYSICAL THERAPY REPORTS SHE IS MAKING GOOD PROGRESS. NO S/S OF RESPIRATORY DISTRESS THROUGHOUT THE NIGHT. RESPIRATIONS HAVE BEEN EVEN AND UNLABORED THROUGHOUT THE NIGHT. CALL LIGHT WITHIN REACH. BED IN LOW POSITION. FLUIDS AT BEDSIDE (HOT TEA PROVIDED PER REQUEST THIS AM.). WILL CONTINUE TO MONITOR UNTIL AM SHIFT CHANGE.
--- NOTE | 2022-03-14 19:43 | NUR ---
SHIFT SUMMARY: PT A&O X4, PLEASANT AND COMMUNICATES WITH STAFF WELL. PT HAD NO BM, RECEVIED SUPP. PT HAD MULTIPLE SMALL, HARD STOOLS. PT UP IN CHAIR THROUGHOUT THE SHIFT. PT HAD MODERATE PAIN WITH MIGRAINE AND MEDICATED PER EMAR PROTOCOL. PT HAD FAMILY AT BEDSIDE THROUGHOUT THE SHIFT. PT IN BED WITH CALL LIGHT WITHIN REACH.
--- NOTE | 2022-03-15 05:42 | NUR ---
PT RESTED WELL, TWO TIMES TO BSC WITH LIFT, CALL LIGHT IN REACH, VSS, PT DENIES NEEDS
--- NOTE | 2022-03-15 18:31 | NUR ---
SHIFT SUMMARY PT AxOx4. PT VERY MOTIVATED TO IMPROVE PHYSICALLY THIS SHIFT. PT WORKED WITH PHYSICAL AND OCCUPATIONAL THERAPY AND WAS CHANGED TO 1 PERSON ASSIST WITH FWW AND GB FOR TRANSFERS. PT FATIGUES QUICKLY, BUT IS VERY ENCOURAGED BY HER PROGRESS. PT VOCALIZED SOME FEARS ABOUT DISCHARGING TO SNF TOO FAR FROM FAMILY. ASSEMBLY SUPERVISOR IN TO DISCUSS OPTIONS AND PLACEMENT IS CURRENTLY PENDING DC TO [facility] TOMORROW. THERAPEUTIC COMMUNICATION PROVIDED TO PATIENT AFTER LEARNING OF POTENTIAL DC PLANS. PT WAS GIVEN PNEUMOCCAL AND FLU VACCINE THIS SHIFT. PT REPORTED PAIN IN HEAD/NECK/KNEES THIS SHIFT. MEDICATED PER EMAR WITH REPORTED RELIEF. PT IS CURRENTLY RESTING IN BED, VISITING WITH HER SIGNIFICANT OTHER. PT DENIES ANY NEEDS AT THIS TIME. CALL LIGHT IN REACH.
--- NOTE | 2022-03-16 07:14 | NUR ---
SHIFT SUMMARY A&O X 4. VSS. PAIN MANAGEMENT WITH PRN OXY AND TYLENOL. TOLERATING WELL. ASSIST X 1 WITH FWW TO BSC. PLEASANT AND COOPERATIVE WITH STAFF. BED ALARM ON. WILL CONTINUE WITH PLAN OF CARE.
--- NOTE | 2022-03-16 10:53 | NUR ---
Pt was a standby assist to get up out of bed to the recliner this morning before breakfast. She has no complaints, states that her bowels have been moving this morning. She states that she had a BM after breakfast as well. Sitting up in recliner chair, fully dressed, and states hoping to go to rehab facility today.
[2022-03-16] MEDS ORDERED: FURO20 PO (11:23)
[2022-03-16] MEDS ORDERED: BISA10S PR (11:26)
[2022-03-16] MEDS ORDERED: HUMALOG KW100 UNIT/1 SC (11:28)
[2022-03-16] MEDS ORDERED: MICONAZOLE NITR85 GM TOP (11:29)
[2022-03-16] MEDS ORDERED: PANT40 PO (11:29)
[2022-03-16] MEDS ORDERED: AIRDUO RESPICL1 EAC4 INH (11:30)
--- NOTE | 2022-03-16 13:25 | NUR ---
Pt asked PCT for pain medication. When I went into the room, pt is lying on her left side, snoring and appears to be sleeping soundly. Call light is within her reach.
--- NOTE | 2022-03-16 14:30 | NUR ---
[facility] has accepted the patient for rehab. Pt is sitting on side of bed; given tylenol and oxycodone for her chronic knee pain from arthritis. Pt states that she also has pain in her neck/head, possibly also from arthritis she says. Lydia morales sent pre-transfer to [facility].
[2022-03-16 15:35] LABS: SARS-Cov-2 (COVID-19) PCR, MMC NEGATIVE (NEGATIVE)
--- NOTE | 2022-03-16 16:25 | NUR ---
Telephone report called to Nena nurse at [facility]. Anticipate transport to arrive at 5 pm for discharge.
--- NOTE | 2022-03-16 18:08 | NUR ---
Pt self transferred with supervision to wheelchair. Taken from [facility] by wheelchair by [facility] transport, destination [facility]. Belongings were held by the patient.
== END 2022-03-16 17:45 | DRG 207 ==
LOC: ER 14:48 → ICUE 19:44 → PCU 19:44 → ICUE 23:52 → ICUW 02-23 09:03 → MEDS 03-10 16:13
PROVIDERS: Internal Medicine; Internal Medicine Critical Care Medicine; Physician Assistant; Student in an Organized Health Care Education/Training Program; ADMIT Family Medicine
PROC: 5A1955Z Respiratory Ventilation, Greater than 96 Consecutive Hours (ICD-10-PCS; principal; 2022-02-23)
PROC: 0BH17EZ Insertion of Endotracheal Airway into Trachea, Via Natural or Artificial Opening (ICD-10-PCS; 2022-02-23)
PROC: 3E02340 Introduction of Influenza Vaccine into Muscle, Percutaneous Approach (ICD-10-PCS; 2022-03-15)
DX: J96.21 Acute and chronic respiratory failure with hypoxia (principal); J15.211 Pneumonia due to Methicillin susceptible Staphylococcus aureus; J15.4 Pneumonia due to other streptococci; J44.1 Chronic obstructive pulmonary disease with (acute) exacerbation; Z68.42 Body mass index [BMI] 45.0-49.9, adult; J44.0 Chronic obstructive pulmonary disease with (acute) lower respiratory infection; J96.22 Acute and chronic respiratory failure with hypercapnia; F32.A Depression, unspecified; M79.7 Fibromyalgia; G89.29 Other chronic pain; Z20.822 Contact with and (suspected) exposure to COVID-19; Z23 Encounter for immunization; L30.4 Erythema intertrigo; B37.2 Candidiasis of skin and nail; K21.9 Gastro-esophageal reflux disease without esophagitis; B97.4 Respiratory syncytial virus as the cause of diseases classified elsewhere; F41.0 Panic disorder [episodic paroxysmal anxiety]; I12.9 Hypertensive chronic kidney disease with stage 1 through stage 4 chronic kidney disease, or unspecified chronic kidney disease; N18.9 Chronic kidney disease, unspecified; E11.22 Type 2 diabetes mellitus with diabetic chronic kidney disease; E11.40 Type 2 diabetes mellitus with diabetic neuropathy, unspecified; E66.9 Obesity, unspecified; Z91.199 Patient's noncompliance with other medical treatment and regimen due to unspecified reason; Z90.710 Acquired absence of both cervix and uterus; Z90.722 Acquired absence of ovaries, bilateral; Z98.890 Other specified postprocedural states; Z87.891 Personal history of nicotine dependence; Z88.1 Allergy status to other antibiotic agents; Z88.2 Allergy status to sulfonamides; Z88.8 Allergy status to other drugs, medicaments and biological substances; Z79.4 Long term (current) use of insulin; Z79.51 Long term (current) use of inhaled steroids; Z79.899 Other long term (current) drug therapy
CPT/HCPCS: 0241U; 31500; 36415; 36600; 51702; 71045; 80048; 80053; 80069; 80202; 81001; 82272; 82728; 82803; 82947; 83540; 83550; 83735; 83880; 84100; 84484; 85025; 85027; 87040; 87070; 87077; 87081; 87086; 87147; 87186; 87205; 90670; 90686; 90732; 92526; 92610; 93005; 93010; 94002; 94003; 94640; 94645; 94660; 94664; 94667; 94668; 94760; 94762; 96374-59; 97110; 97116; 97162; 97166; 97530; 97535; 99285-25; A9270; C1751; C9113; J0330; J0360; J0692; J0696; J1650; J1815; J1940; J2060; J2250; J2405; J2704; J2920; J2930; J3010; J3370; J7030; J7040; J7050; J7060; J7120; J7512; U0004

== ENCOUNTER → 2022-06-20 | Outpatient (CLI) | payer OTHER ==
[~2022-06-20] MED LIST changes: +ABILIFY MYCITE2 M2 PO; +AIRDUO RESPICL1 EAC4 INH; +BISA10S PR; +FURO20 PO; +FUROSEMIDE40 MG PO; +HUMALOG KW100 UNIT/1 SC; +MICONAZOLE NITR85 GM TOP; +OZEMPIC1 MG/0.72 SC; +PANT40 PO; +PRAZ2 PO; +Prozac20 MG PO; +TOUJEO MAX300 UNIT/2 SC
== END | disposition home or self-care (01) ==
LOC: LAB SHORT 10:00
DX: R10.13 Epigastric pain (principal); R11.0 Nausea
CPT/HCPCS: 87338

== ENCOUNTER 2023-12-23 05:33 | Emergency (ER) | payer OTHER ==
[~2023-12-23] VITALS: Ht 152.4 cm; Wt 106.6 kg
[2023-12-23 06:08] LABS: BASOPHILS ABSOLUTE AUTO 0.08 K/mm3 (0.00-0.23); BASOPHILS PERCENT AUTO 1 % (0-2); EOSINOPHILS ABSOLUTE AUTO 0.22 K/mm3 (0.00-0.68); EOSINOPHILS PERCENT AUTO 2 % (0-6); Hematocrit 35.3 % (33.0-51.0); IMMATURE GRAN ABSOLUTE AUTO 0.12 K/mm3 (0.00-0.10); IMMATURE GRAN PERCENT AUTO 1 % (0-1); LYMPHOCYTES ABSOLUTE AUTO 1.67 K/mm3 (0.84-5.20); LYMPHOCYTES PERCENT AUTO 11 % (21-46); MONOCYTES ABSOLUTE AUTO 1.27 K/mm3 (0.16-1.47); MONOCYTES PERCENT AUTO 8 % (4-13); Mean Corpuscular HGB 29.6 pg (26.0-34.0); Mean Corpuscular Volume 87 fL (80-100); Mean Platelet Volume 8.5 fL (9.1-12.4); NEUTROPHILS ABSOLUTE AUTO 11.74 K/mm3 (1.96-9.15); NEUTROPHILS PERCENT AUTO 78 % (41-73); Platelet Count 448 K/mm3 (150-400); RDW Coefficient Variation 13.5 % (11.7-14.2); Red Blood Cell Count 4.06 M/mm3 (3.80-5.20)
[2023-12-23 06:09] LABS: Source, Urine Clean Catch
[2023-12-23 06:12] LABS: Appearance, Urine Clear (Clear); Bilirubin, Urine Neg (Neg); Blood, Urine Neg (Neg); Color, Urine Yellow (P-Yellow); Glucose Qualitative, Urine Neg (Neg); Ketones, Urine Neg (Neg); Leukocyte Esterase, Urine 1+ (Neg); Nitrite, Urine Neg (Neg); Protein, Urine 1+ (Neg); Specific Gravity, Urine 1.025 (1.003-1.022); Urobilinogen, Urine NORM (Normal)
[2023-12-23] MEDS ORDERED: Prochlorperazine Edisylate 10 mg Vial IV ONE (06:20)
[2023-12-23 06:22] LABS: Bacteria Rare /hpf; Red Blood Cells, Urine Not Seen /hpf (0-2); Squamous Epithelial Cells Many /hpf (Few)
[2023-12-23 06:29] LABS: Albumin/Globulin Ratio 0.7 (0.8-1.8); Bilirubin, Total 0.5 mg/dL (0.1-1.0); Bun/Creatinine Ratio 17.1 (12.0-20.0); Calcium, Blood 9.9 mg/dL (8.5-10.1); Creatinine, Blood 1.4 mg/dL (0.40-1.00); Globulin, Blood 4.6 g/dL (2.2-4.0); Total Protein, Blood 7.6 g/dL (6.4-8.2)
[2023-12-23] MEDS ORDERED: NS 1,000 ML IV SCH (06:35)
[2023-12-23] MEDS ORDERED: EFFEXOR XR37.5 MG PO (06:43)
[2023-12-23] MEDS ORDERED: CALCITRIOL0.25 MC4 PO (06:44)
[2023-12-23] MEDS ORDERED: LAMOTRIGINE100 M1 PO (06:44)
[2023-12-23] MEDS ORDERED: Cyclobenzaprine5 MG PO (06:45)
[2023-12-23] MEDS ORDERED: FUROSEMIDE40 MG PO (06:46)
[2023-12-23] MEDS ORDERED: PANTOPRAZOLE SO40 M2 PO (06:46)
[2023-12-23] MEDS ORDERED: SPIRONOLACTONE25 MG PO (06:46)
[2023-12-23] MEDS ORDERED: NEURONTIN300 MG PO (06:47)
[2023-12-23] MEDS ORDERED: EZETIMIBE10 M6 PO (06:47)
[2023-12-23] MEDS ORDERED: NICORETTE2 M1 BC (06:48)
[2023-12-23] MEDS ORDERED: MOUNJARO15 MG/0.5 SQ (06:49)
[2023-12-23] MEDS ORDERED: Amoxicillin/Clavulanate K 875 MG Tab PO ONE (08:00)
[2023-12-23] MEDS ORDERED: MIRALAX1714 PO (08:03)
[2023-12-23] MEDS ORDERED: MAGCIT300 PO (08:03)
[2023-12-23] MEDS ORDERED: AMOCLA875 PO (08:04)
[2023-12-23 08:12] VITALS: BP 130/72
== END 2023-12-23 08:28 | disposition home or self-care (01) ==
LOC: ER 05:33
PROVIDERS: Emergency Medicine
DX: K57.32 Diverticulitis of large intestine without perforation or abscess without bleeding (principal); K59.00 Constipation, unspecified; E11.40 Type 2 diabetes mellitus with diabetic neuropathy, unspecified; I10 Essential (primary) hypertension; F17.200 Nicotine dependence, unspecified, uncomplicated; Z79.899 Other long term (current) drug therapy; Z79.51 Long term (current) use of inhaled steroids; Z79.4 Long term (current) use of insulin; Z88.1 Allergy status to other antibiotic agents; Z88.6 Allergy status to analgesic agent; Z88.8 Allergy status to other drugs, medicaments and biological substances
CPT/HCPCS: 74177; 80053; 81001; 85025; 87086; 96361; 96374; 99284-25; A9270; J0780; J7030; Q9967

== ENCOUNTER 2024-08-24 08:00 | Day surgery (SDC) | payer OTHER ==
[~2024-08-24] VITALS: Ht 152.4 cm; Wt 94.9 kg
[~2024-08-24 08:00] MED LIST changes: +AMOCLA875 PO; +CALCITRIOL0.25 MC4 PO; +Cyclobenzaprine5 MG PO; +EFFEXOR XR37.5 MG PO; +EZETIMIBE10 M6 PO; +LAMOTRIGINE100 M1 PO; +Lactated Ringer's 1,000 ML IV ONE; +Lidocaine HCl/Pf 1% 5 ML VIAL ONE; +MAGCIT300 PO; +MIRALAX1714 PO; +MOUNJARO15 MG/0.5 SQ; +NEURONTIN300 MG PO; +NICORETTE2 M1 BC; +PANTOPRAZOLE SO40 M2 PO; +SPIRONOLACTONE25 MG PO
[2024-08-24] MEDS ORDERED: CeFAZolin Sodium 3,000 MG VIAL ONE (08:33)
[2024-08-24] MEDS ORDERED: CeFAZolin Sodium 2,000 MG VIAL ONE (08:34)
[2024-08-24] MEDS ORDERED: Neurontin 100100 MG PO (08:35)
[2024-08-24] MEDS ORDERED: PYRI100 PO (08:41)
[2024-08-24] MEDS ORDERED: THERA-D2000 UNIT PO (08:41)
[2024-08-24] MEDS ORDERED: Magnesium500 M1 PO (08:42)
[2024-08-24] MEDS ORDERED: Vitamin B-12100 MCG (08:42)
[2024-08-24] MEDS ORDERED: FentaNYL Citrate 50 MCG/ML 2 ML Injection ONE (09:00)
[2024-08-24] MEDS ORDERED: Midazolam HCl 1MG / ML 2ML Vial ONE (09:00)
[2024-08-24] MEDS ORDERED: propofoL 20 ML IV ONE (09:00)
[2024-08-24] MEDS ORDERED: Lactated Ringer's 1,000 ML IV ONE (09:01)
[2024-08-24] MEDS ORDERED: Ondansetron HCl 2 MG / ML 2ML Vial ONE (09:02)
[2024-08-24] MEDS ORDERED: Dexamethasone Sod Phos 10 MG/ML 1ML VIAL ONE (09:02)
[2024-08-24] MEDS ORDERED: ePHEDrine Sulfate 50 MG/ML 1ML Injection ONE (09:50)
[2024-08-24] MEDS ORDERED: Bupivacaine 0.5% HCl 5 MG/ML 30MLVIAL XX ONE (09:56)
[2024-08-24] MEDS ORDERED: HYDROcodone 5-APAP 325 TAB ONE (11:09)
--- NOTE | 2024-08-24 11:15 | NUR ---
08/24/24 Fatoumata Pierre, FROM IMAGING, CONFIRMED THE PLACEMENT OF MEDIPORT. EVERYTHING LOOKS GOOD.
[2024-08-24 11:30] VITALS: BP 108/68
== END 2024-08-24 11:21 | disposition home or self-care (01) ==
LOC: ORSCSDS 08:00
PROVIDERS: Surgery
PROC: 0JH60WZ Insertion of Totally Implantable Vascular Access Device into Chest Subcutaneous Tissue and Fascia, Open Approach (ICD-10-PCS; principal; 2024-08-24 09:30)
DX: C50.911 Malignant neoplasm of unspecified site of right female breast (principal); C50.811 Malignant neoplasm of overlapping sites of right female breast; C77.3 Secondary and unspecified malignant neoplasm of axilla and upper limb lymph nodes; Z17.32 Human epidermal growth factor receptor 2 negative status; Z17.0 Estrogen receptor positive status [ER+]; Z17.21 Progesterone receptor positive status; J44.9 Chronic obstructive pulmonary disease, unspecified; F41.1 Generalized anxiety disorder; Z86.73 Personal history of transient ischemic attack (TIA), and cerebral infarction without residual deficits; I12.9 Hypertensive chronic kidney disease with stage 1 through stage 4 chronic kidney disease, or unspecified chronic kidney disease; E11.22 Type 2 diabetes mellitus with diabetic chronic kidney disease; N18.31 Chronic kidney disease, stage 3a; E78.2 Mixed hyperlipidemia; Z87.891 Personal history of nicotine dependence; Z79.85 Long-term (current) use of injectable non-insulin antidiabetic drugs; Z79.4 Long term (current) use of insulin; Z79.899 Other long term (current) drug therapy
CPT/HCPCS: 77001; 82947; A9270; C1788; J0690; J1100; J1642; J2003; J2250; J2405; J2704; J3010; J7120

== ENCOUNTER 2025-01-18 12:07 | Day surgery (SDC) | payer OTHER ==
[~2025-01-18] VITALS: Ht 152.4 cm; Wt 101.2 kg
[~2025-01-18 12:07] MED LIST changes: +Glycopyrrolate 0.2 MG/ML 1MLVIAL ONE; -Lactated Ringer's 1,000 ML IV ONE; -Lidocaine HCl/Pf 1% 5 ML VIAL ONE; +Magnesium500 M1 PO; +Neurontin 100100 MG PO; +Ondansetron HCl 2 MG / ML 2ML Vial ONE; +PYRI100 PO; +THERA-D2000 UNIT PO; +Vitamin B-12100 MCG; +ePHEDrine Sulfate 50 MG/ML 1ML Injection ONE
[2025-01-18] MEDS ORDERED: ASPI81CH (12:23)
[2025-01-18] MEDS ORDERED: SYMBICORT 160-4.6 GM (12:24)
[2025-01-18] MEDS ORDERED: ERGO400 (12:27)
[2025-01-18] MEDS ORDERED: BREZTRI AEROS10.7 GM (12:27)
[2025-01-18] MEDS ORDERED: CALC.25 (12:27)
[2025-01-18] MEDS ORDERED: Abraxane100 MG (12:30)
[2025-01-18] MEDS ORDERED: PROM25 (12:30)
[2025-01-18] MEDS ORDERED: POTA20PAC (12:30)
[2025-01-18] MEDS ORDERED: NYSTRIT (12:31)
[2025-01-18] MEDS ORDERED: BASAGLAR K100 UNIT/1 (12:32)
[2025-01-18] MEDS ORDERED: Benzocaine Oral Spray 0.5ML UD ONE (12:54)
[2025-01-18 14:23] VITALS: BP 103/64
== END 2025-01-18 14:15 | disposition home or self-care (01) ==
LOC: ORSCSDS 12:07
PROVIDERS: Internal Medicine Gastroenterology
PROC: 0DJD8ZZ Inspection of Lower Intestinal Tract, Via Natural or Artificial Opening Endoscopic (ICD-10-PCS; principal; 2025-01-18 14:00)
PROC: 0DJ08ZZ Inspection of Upper Intestinal Tract, Via Natural or Artificial Opening Endoscopic (ICD-10-PCS; principal; 2025-01-18 14:00)
DX: R10.13 Epigastric pain (principal); K57.32 Diverticulitis of large intestine without perforation or abscess without bleeding; C34.90 Malignant neoplasm of unspecified part of unspecified bronchus or lung; C79.81 Secondary malignant neoplasm of breast; Z95.828 Presence of other vascular implants and grafts; J44.9 Chronic obstructive pulmonary disease, unspecified; I25.2 Old myocardial infarction; I25.10 Atherosclerotic heart disease of native coronary artery without angina pectoris; Z99.81 Dependence on supplemental oxygen; Z86.73 Personal history of transient ischemic attack (TIA), and cerebral infarction without residual deficits; E66.01 Morbid (severe) obesity due to excess calories; Z68.41 Body mass index [BMI] 40.0-44.9, adult; Z79.899 Other long term (current) drug therapy; Z79.84 Long term (current) use of oral hypoglycemic drugs; Z87.891 Personal history of nicotine dependence
CPT/HCPCS: 82947; A9270; J2003; J2405; J2704; J7120